=== PATIENT | female | born 1955 | race Caucasian/White ===

== ENCOUNTER 2016-12-25 21:32 | Emergency (ER) | payer OTHER ==
[~2016-12-25] VITALS: Ht 160 cm; Wt 130.0 kg
[~2016-12-25 21:32] MED LIST: NO HOME MEDS; NORCO 325 MG-101 TAB PO; NORCO 325 MG-7.1 TAB PO; ROXICODONE 55 MG/TAB PO; TYLENOL 500MG500 MG PO
[2016-12-25] MEDS ORDERED: TYLENOL 500MG500 MG PO (21:39)
[2016-12-25] MEDS ORDERED: CIPRO 500MG TA500 MG PO (21:40)
[2016-12-25 21:41] VITALS: TEMP 98.5
[2016-12-25] MEDS ORDERED: FLAGYL500 MG PO (21:41)
[2016-12-25 22:24] LABS: BASO % 0.3 % (0.0-2.0); EOS # 0.1 (0.0-0.7); EOS % 0.7 % (0-4.0); GRAN % 79.2 % (42.2-75.2); HEMOGLOBIN 15.1 g/dl (12.5-16.0); LYMPH % 11.1 % (20.0-51.0); MEAN CELL VOLUME 98 fl (80.0-100.0); MEAN CORPUSCULAR HEMOGLOBIN 34 pg (27.0-31.0); MEAN CORPUSCULAR HGB CONC 34 g/dl (33.0-37.0); MEAN PLATELET VOLUME 10.7 fl (7.4-10.4); MONO # 0.7 (0.1-0.6); MONO % 8.4 % (1.7-9.3); PLATELET COUNT 163 K/mm3 (130-400); RED BLOOD COUNT 4.49 M/mm3 (4.10-5.30); WHITE BLOOD COUNT 8.8 K/mm3 (4.8-10.8)
[2016-12-25 22:47] LABS: ADJUSTED CALCIUM 8.8 mg/dL (8.4-10.2); ALBUMIN 3.7 gm/dL (3.5-5.0); BILIRUBIN,TOTAL 1.7 mg/dL (0.0-1.0); C-REACTIVE PROTEIN 5.4 mg/dL (0.0-0.9); CALCIUM 8.6 mg/dL (8.4-10.2); CREATININE, serum 1.07 mg/dL (0.52-1.25); POTASSIUM 3.9 mmol/L (3.4-5.0); TOTAL PROTEIN 7.9 gm/dL (6.4-8.2)
[2016-12-26 00:20] LABS: PH 6 (5-8); URINE APPEARANCE Hazy; URINE BACTERIA Rare /hpf; URINE BILIRUBIN Negative (NEGATIVE); URINE BLOOD 1+ (NEGATIVE); URINE COLOR Yellow; URINE GLUCOSE Negative (NEGATIVE); URINE KETONE Negative (NEGATIVE); URINE UROBILINOGEN >=4.0 mg/dL (NEGATIVE)
[2016-12-26] MEDS ORDERED: PERCOCET 325 MG1 TA2 PO (00:32)
[2016-12-26] MEDS ORDERED: ZOFRAN ODT4 MG PO (00:32)
[2016-12-26 00:56] VITALS: BP 118/84; PULSE 96
== END 2016-12-26 00:50 | disposition home or self-care (01) ==
LOC: COL.ER 21:32
PROVIDERS: Nurse Practitioner
DX: N13.2 Hydronephrosis with renal and ureteral calculous obstruction (principal); Z87.442 Personal history of urinary calculi; J44.9 Chronic obstructive pulmonary disease, unspecified; Z99.81 Dependence on supplemental oxygen; Z87.891 Personal history of nicotine dependence
CPT/HCPCS: J1170; J2405; J7030; Q9967

== ENCOUNTER 2016-12-26 13:24 | Day surgery (SDC) | payer OTHER ==
[~2016-12-26] VITALS: Ht 152.4 cm; Wt 130.0 kg
[~2016-12-26 13:24] MED LIST changes: +CIPRO 500MG TA500 MG PO; +FLAGYL500 MG PO; +PERCOCET 325 MG1 TA2 PO; +ZOFRAN ODT4 MG PO
[2016-12-26 13:46] VITALS: BP 123/65; PULSE 84; TEMP 97.9
[2016-12-26 17:03] VITALS: TEMP 97.5
[2016-12-26 17:34] VITALS: BP 145/86; PULSE 75
== END 2016-12-26 19:24 | disposition home or self-care (01) ==
LOC: SURG 13:24 → SDCO 13:24 → SURG 13:30 → SDCO 19:24
DX: N20.1 Calculus of ureter (principal); J44.9 Chronic obstructive pulmonary disease, unspecified; G47.33 Obstructive sleep apnea (adult) (pediatric); G43.909 Migraine, unspecified, not intractable, without status migrainosus; E66.01 Morbid (severe) obesity due to excess calories; Z68.41 Body mass index [BMI] 40.0-44.9, adult; Z90.710 Acquired absence of both cervix and uterus; Z87.891 Personal history of nicotine dependence
CPT/HCPCS: OP; C1769; C1894; C2617; J1100; J1885; J2405; J2704; J3010; Q9967

== ENCOUNTER → 2017-01-07 | Outpatient (CLI) | payer OTHER | LOC: COL.RAD 08:10 | DX: N28.89 Other specified disorders of kidney and ureter (principal); Z96.0 Presence of urogenital implants ==

== ENCOUNTER 2017-01-14 14:07 | Day surgery (SDC) | payer OTHER ==
[~2017-01-14] VITALS: Ht 160 cm; Wt 131.6 kg
[2017-01-14 14:44] VITALS: BP 114/76; PULSE 91; TEMP 99.5
[2017-01-14 19:45] VITALS: BP 141/84; PULSE 116; TEMP 98.4
[2017-01-14 20:00] VITALS: BP 154/82; PULSE 98; TEMP 98.5
[2017-01-14 21:17] VITALS: BP 163/72; PULSE 100; TEMP 98.2
== END 2017-01-14 20:15 | disposition home or self-care (01) ==
LOC: SDCO 14:07 → SURG 19:45 → SDCO 20:15
DX: N20.0 Calculus of kidney (principal); J44.9 Chronic obstructive pulmonary disease, unspecified; G47.33 Obstructive sleep apnea (adult) (pediatric); M19.90 Unspecified osteoarthritis, unspecified site; G43.909 Migraine, unspecified, not intractable, without status migrainosus; E66.01 Morbid (severe) obesity due to excess calories; Z90.710 Acquired absence of both cervix and uterus; Z87.891 Personal history of nicotine dependence
CPT/HCPCS: OP; C1769; J0690; J1100; J2405; J2704; J3010; J7120

== ENCOUNTER → 2017-01-20 | Outpatient (CLI) | payer OTHER | LOC: COL.RAD 11:07 | DX: N20.1 Calculus of ureter (principal); I87.8 Other specified disorders of veins ==

== ENCOUNTER 2018-03-28 01:39 | Inpatient (IN) | payer MEDICARE, OTHER ==
[~2018-03-28] VITALS: Ht 160 cm; Wt 142.3 kg
[2018-03-28] MEDS ORDERED: TYLENOL 500MG500 MG PO (01:58)
[2018-03-28] MEDS ORDERED: NEURONTIN300 MG/CAP PO (01:59)
[2018-03-28 02:37] LABS: HEMATOCRIT 42.1 % (37.0-47.0); HEMOGLOBIN 14.3 g/dl (12.5-16.0); MEAN CELL VOLUME 98 fl (80.0-100.0); MEAN CORPUSCULAR HEMOGLOBIN 33 pg (27.0-31.0); MEAN CORPUSCULAR HGB CONC 34 g/dl (33.0-37.0); MEAN PLATELET VOLUME 10.8 fl (7.4-10.4); PLATELET COUNT 116 K/mm3 (130-400); RED BLOOD COUNT 4.28 M/mm3 (4.10-5.30); REDCELL DISTRIBUTION WIDTH-CV 13.3 % (11.5-14.5)
[2018-03-28 02:50] LABS: ALBUMIN 3.2 gm/dL (3.5-5.0); BILIRUBIN,TOTAL 2.4 mg/dL (0.0-1.0); CALCIUM 8.2 mg/dL (8.4-10.2); CREATININE, serum 1.19 mg/dL (0.52-1.25); POTASSIUM 4.1 mmol/L (3.4-5.0); TOTAL PROTEIN 7.3 gm/dL (6.4-8.2)
[2018-03-28 03:06] LABS: BAND 11 % (0-10); LYMPHOCYTE 2 % (20.0-51.0); NEUTROPHILS 84 % (42.0-75.2); PLATELET ESTIMATE NORMAL (NORMAL)
[2018-03-28 03:44] LABS: COLLECTION METHOD CLEAN CATCH
[2018-03-28 03:52] LABS: MUCOUS Present /lpf; PH 6 (5-8); SQUAMOUS EPITHELIAL 0-2 /hpf; URINE APPEARANCE Cloudy; URINE BACTERIA Rare /hpf; URINE BILIRUBIN Negative (NEGATIVE); URINE BLOOD 2+ (NEGATIVE); URINE COLOR Amber; URINE GLUCOSE Negative (NEGATIVE); URINE KETONE Negative (NEGATIVE); URINE LEUKOCYTE ESTERASE 2+ (NEGATIVE); URINE NITRATE Negative (NEGATIVE); URINE PROTEIN(semi-quant) 3+ (NEGATIVE); URINE UROBILINOGEN Negative (NEGATIVE)
[2018-03-28 06:37] VITALS: BP 100/56; PULSE 104; TEMP 98.4
[2018-03-28 08:00] VITALS: BP 116/56; PULSE 116; TEMP 99.5
[2018-03-28 11:53] VITALS: BP 99/85; PULSE 125; TEMP 100.9
[2018-03-28 15:48] VITALS: BP 92/60; PULSE 141; TEMP 102.5
[2018-03-28 16:18] LABS: CALCIUM 7.7 mg/dL (8.4-10.2); CREATININE, serum 1.17 mg/dL (0.52-1.25); POTASSIUM 4.2 mmol/L (3.4-5.0)
[2018-03-28 16:45] LABS: ARTERIAL BLD GAS O2 SATURATION 94.5 % (92-100); ARTERIAL BLD GAS TCO2 CT 24.9; ARTERIAL BLOOD GAS BASE EXCESS -0.3 (-2-2); ARTERIAL BLOOD GAS HCO3 23.7 meq/L (22-26); ARTERIAL BLOOD GAS PCO2 37.1 mmHg (35-45); ARTERIAL BLOOD GAS PO2 71.9 mmHg (80-100); ARTERIAL BLOOD GAS pH 7.42 (7.35-7.45)
[2018-03-28 19:39] LABS: INR 1.6 (0.8-3.0); PROTHROMBIN TIME 18.7 SECONDS (9.7-12.8)
[2018-03-28 20:00] VITALS: BP 113/62; PULSE 109; TEMP 100.4
[2018-03-28 22:47] LABS: CALCIUM 7.5 mg/dL (8.4-10.2); CREATININE, serum 1.17 mg/dL (0.52-1.25)
[2018-03-28 22:48] LABS: HEMATOCRIT 39.1 % (37.0-47.0); HEMOGLOBIN 13.2 g/dl (12.5-16.0); MEAN CELL VOLUME 101 fl (80.0-100.0); MEAN CORPUSCULAR HEMOGLOBIN 34 pg (27.0-31.0); MEAN CORPUSCULAR HGB CONC 34 g/dl (33.0-37.0); MEAN PLATELET VOLUME 11.5 fl (7.4-10.4); PLATELET COUNT 87 K/mm3 (130-400); RED BLOOD COUNT 3.89 M/mm3 (4.10-5.30); REDCELL DISTRIBUTION WIDTH-CV 13.7 % (11.5-14.5)
[2018-03-29] VITALS: BP 118/70; PULSE 123; TEMP 101.3
[2018-03-29 00:27] LABS: BAND 19 % (0-10); LYMPHOCYTE 6 % (20.0-51.0); NEUTROPHILS 71 % (42.0-75.2); PLATELET ESTIMATE DECREASED (NORMAL)
[2018-03-29 00:29] LABS: ANISOCYTOSIS 1+; HYPOCHROMIA 1+
[2018-03-29 04:00] VITALS: BP 111/63; PULSE 113; TEMP 99.6
[2018-03-29 05:46] LABS: ARTERIAL BLD GAS O2 SATURATION 96.9 % (92-100); ARTERIAL BLD GAS TCO2 CT 24.8; ARTERIAL BLOOD GAS HCO3 23.5 meq/L (22-26); ARTERIAL BLOOD GAS PCO2 42.8 mmHg (35-45); ARTERIAL BLOOD GAS PO2 96.5 mmHg (80-100); ARTERIAL BLOOD GAS pH 7.36 (7.35-7.45)
[2018-03-29 05:57] LABS: HEMATOCRIT 38.8 % (37.0-47.0); HEMOGLOBIN 12.8 g/dl (12.5-16.0); MEAN CELL VOLUME 102 fl (80.0-100.0); MEAN CORPUSCULAR HEMOGLOBIN 34 pg (27.0-31.0); MEAN CORPUSCULAR HGB CONC 33 g/dl (33.0-37.0); MEAN PLATELET VOLUME 11.6 fl (7.4-10.4); PLATELET COUNT 76 K/mm3 (130-400); RED BLOOD COUNT 3.82 M/mm3 (4.10-5.30); REDCELL DISTRIBUTION WIDTH-CV 13.5 % (11.5-14.5)
[2018-03-29 06:07] LABS: ALBUMIN 2.7 gm/dL (3.5-5.0); BILIRUBIN,TOTAL 1.7 mg/dL (0.0-1.0); CALCIUM 7.5 mg/dL (8.4-10.2); CREATININE, serum 1.03 mg/dL (0.52-1.25); POTASSIUM 3.8 mmol/L (3.4-5.0); TOTAL PROTEIN 6.5 gm/dL (6.4-8.2)
[2018-03-29 06:08] LABS: INR 1.6 (0.8-3.0); PROTHROMBIN TIME 18.2 SECONDS (9.7-12.8)
[2018-03-29 06:16] LABS: ANISOCYTOSIS 1+; BAND 27 % (0-10); LYMPHOCYTE 5 % (20.0-51.0); NEUTROPHILS 64 % (42.0-75.2); TROPONIN-I 0.025 ng/mL (0.000-0.034)
[2018-03-29 07:43] VITALS: BP 121/62; PULSE 114; TEMP 101.4
[2018-03-29 11:23] VITALS: BP 105/60; PULSE 104; TEMP 99.1
[2018-03-29 15:43] VITALS: BP 123/62; PULSE 98; TEMP 97.9
[2018-03-29 20:00] VITALS: BP 135/75; PULSE 107; TEMP 98.1
[2018-03-30] VITALS: BP 121/58; PULSE 98; TEMP 98.5
[2018-03-30 04:00] VITALS: BP 105/65; PULSE 85; TEMP 99.8
[2018-03-30 06:03] LABS: ARTERIAL BLD GAS O2 SATURATION 97.6 % (92-100); ARTERIAL BLD GAS TCO2 CT 25.2; ARTERIAL BLOOD GAS BASE EXCESS -2.6 (-2-2); ARTERIAL BLOOD GAS HCO3 23.7 meq/L (22-26); ARTERIAL BLOOD GAS PCO2 46.9 mmHg (35-45); ARTERIAL BLOOD GAS PO2 104.3 mmHg (80-100); ARTERIAL BLOOD GAS pH 7.32 (7.35-7.45)
[2018-03-30 06:36] LABS: BASO % 0.5 % (0.0-2.0); EOS # 0.1 (0.0-0.7); GRAN # 6.7 (1.4-6.5); GRAN % 82.9 % (42.2-75.2); HEMATOCRIT 37.5 % (37.0-47.0); HEMOGLOBIN 12.1 g/dl (12.5-16.0); LYMPH # 0.6 (1.2-3.4); LYMPH % 7.8 % (20.0-51.0); MEAN CELL VOLUME 103 fl (80.0-100.0); MEAN CORPUSCULAR HEMOGLOBIN 33 pg (27.0-31.0); MEAN CORPUSCULAR HGB CONC 32 g/dl (33.0-37.0); MEAN PLATELET VOLUME 11.1 fl (7.4-10.4); MONO # 0.6 (0.1-0.6); MONO % 7.1 % (1.7-9.3); PLATELET COUNT 73 K/mm3 (130-400); RED BLOOD COUNT 3.64 M/mm3 (4.10-5.30); REDCELL DISTRIBUTION WIDTH-CV 13.3 % (11.5-14.5)
[2018-03-30 06:43] LABS: INR 1.3 (0.8-3.0)
[2018-03-30 06:50] LABS: ALBUMIN 2.7 gm/dL (3.5-5.0); CALCIUM 7.8 mg/dL (8.4-10.2); CREATININE, serum 0.9 mg/dL (0.52-1.25); POTASSIUM 3.8 mmol/L (3.4-5.0); TOTAL PROTEIN 6.5 gm/dL (6.4-8.2)
[2018-03-30 07:38] VITALS: BP 130/73; PULSE 93; TEMP 97.8
[2018-03-30 13:42] VITALS: BP 129/75; PULSE 76; TEMP 97.7
[2018-03-30 16:28] VITALS: BP 105/58; PULSE 67; TEMP 97.9
[2018-03-30 19:08] VITALS: BP 130/72; PULSE 115; TEMP 98.3
[2018-03-31 05:00] VITALS: BP 133/78; PULSE 62; TEMP 98.6
[2018-03-31 07:42] VITALS: BP 110/70; PULSE 96; TEMP 98.3
[2018-03-31 07:44] LABS: BASO # 0.1 (0.0-0.2); BASO % 0.7 % (0.0-2.0); EOS # 0.1 (0.0-0.7); EOS % 1.9 % (0-4.0); GRAN # 5.8 (1.4-6.5); GRAN % 78.9 % (42.2-75.2); HEMATOCRIT 38.3 % (37.0-47.0); HEMOGLOBIN 12.6 g/dl (12.5-16.0); LYMPH # 0.7 (1.2-3.4); LYMPH % 8.8 % (20.0-51.0); MEAN CELL VOLUME 102 fl (80.0-100.0); MEAN CORPUSCULAR HEMOGLOBIN 34 pg (27.0-31.0); MEAN CORPUSCULAR HGB CONC 33 g/dl (33.0-37.0); MEAN PLATELET VOLUME 10.8 fl (7.4-10.4); MONO # 0.7 (0.1-0.6); MONO % 9.4 % (1.7-9.3); PLATELET COUNT 89 K/mm3 (130-400); RED BLOOD COUNT 3.76 M/mm3 (4.10-5.30); REDCELL DISTRIBUTION WIDTH-CV 13.1 % (11.5-14.5)
[2018-03-31 12:05] VITALS: BP 105/58; PULSE 84; TEMP 98.7
[2018-03-31 15:36] VITALS: BP 109/84; PULSE 99; TEMP 98.4
[2018-03-31 21:00] VITALS: BP 138/88; PULSE 97; TEMP 98.1
[2018-04-01] VITALS: BP 121/65; PULSE 82; TEMP 97.3
[2018-04-01 05:11] VITALS: BP 93/71; PULSE 97; TEMP 98.3
[2018-04-01 07:45] VITALS: BP 115/75; PULSE 77; TEMP 97.9
[2018-04-01 11:40] VITALS: BP 112/62; PULSE 96; TEMP 98.1
[2018-04-01 15:22] VITALS: BP 122/51; PULSE 82; TEMP 98.8
[2018-04-01 23:10] VITALS: BP 133/65; PULSE 93; TEMP 97.9
[2018-04-02 01:24] VITALS: BP 107/47; PULSE 84; TEMP 97.6
[2018-04-02 05:02] VITALS: BP 143/72; PULSE 91; TEMP 97.5
[2018-04-02 07:48] VITALS: BP 105/53; PULSE 77; TEMP 97.7
[2018-04-02] MEDS ORDERED: LEVAQUIN 750MG750 M1 PO (13:43)
[2018-04-02] MEDS ORDERED: LEVAQUIN 5500 MG/TA1 PO (14:52)
[2018-04-02 15:48] VITALS: BP 110/71; PULSE 97; TEMP 97.1
== END 2018-04-02 17:35 | disposition home health service (06) | DRG 871 ==
LOC: COL.ER 01:39 → ICU 04:19 → MEDICAL 04:19
PROVIDERS: Emergency Medicine; Internal Medicine Pulmonary Disease
PROC: 02HV33Z Insertion of Infusion Device into Superior Vena Cava, Percutaneous Approach (ICD-10-PCS; principal; 2018-03-28)
DX: A41.51 Sepsis due to Escherichia coli [E. coli] (principal); J96.01 Acute respiratory failure with hypoxia; N10 Acute pyelonephritis; Z68.43 Body mass index [BMI] 50.0-59.9, adult; E87.2 Acidosis; R65.20 Severe sepsis without septic shock; N20.0 Calculus of kidney; G62.9 Polyneuropathy, unspecified; Z87.891 Personal history of nicotine dependence; I10 Essential (primary) hypertension; E66.9 Obesity, unspecified
CPT/HCPCS: J0696; J1644; J1956; J2405; J2543; J7030; J7120; Q9967

== ENCOUNTER → 2018-04-29 | Outpatient (CLI) | payer MEDICARE, OTHER ==
[~2018-04-29] MED LIST changes: +LEVAQUIN 5500 MG/TA1 PO; +LEVAQUIN 750MG750 M1 PO; +NEURONTIN300 MG/CAP PO
== END ==
LOC: MC.RAD 07:34
DX: Z12.31 Encounter for screening mammogram for malignant neoplasm of breast (principal)

== ENCOUNTER 2019-06-03 23:33 | Emergency (ER) | payer MEDICARE, OTHER ==
[~2019-06-03] VITALS: Ht 157.5 cm; Wt 127.3 kg
[2019-06-03 23:44] VITALS: BP 133/66
[2019-06-04 00:16] LABS: BASO % 0.5 % (0.0-2.0); EOS # 0.1 (0.0-0.7); EOS % 1.6 % (0-4.0); GRAN # 6.8 (1.4-6.5); GRAN % 77.8 % (42.2-75.2); HEMATOCRIT 40.3 % (37.0-47.0); HEMOGLOBIN 13.6 g/dl (12.5-16.0); LYMPH # 1.2 (1.2-3.4); LYMPH % 13.1 % (20.0-51.0); MEAN CELL VOLUME 102 fl (80.0-100.0); MEAN CORPUSCULAR HEMOGLOBIN 34 pg (27.0-31.0); MEAN CORPUSCULAR HGB CONC 34 g/dl (33.0-37.0); MEAN PLATELET VOLUME 10.6 fl (7.4-10.4); MONO # 0.6 (0.1-0.6); MONO % 6.8 % (1.7-9.3); PLATELET COUNT 100 K/mm3 (130-400); RED BLOOD COUNT 3.97 M/mm3 (4.10-5.30); REDCELL DISTRIBUTION WIDTH-CV 13.7 % (11.5-14.5)
[2019-06-04 00:21] LABS: INR 1.1 (0.8-3.0); PROTHROMBIN TIME 12.8 SECONDS (9.7-12.8)
[2019-06-04 00:25] LABS: ALANINE AMINOTRANSFERASE 27 U/L (9-52); ALBUMIN 3.6 gm/dL (3.5-5.0); ALKALINE PHOSPHATASE 210 U/L (50-136); ANION GAP 7 mmol/L (7-16); AST,SGOT 63 U/L (15-37); BILIRUBIN,TOTAL 1.2 mg/dL (0.0-1.0); BLOOD UREA NITROGEN 18 mg/dL (7-17); CARBON DIOXIDE 26 mmol/L (22-30); CHLORIDE 101 mmol/L (98-107); GLUCOSE 121 mg/dL (74-106); POTASSIUM 4.2 mmol/L (3.4-5.0); SODIUM 134 mmol/L (137-145); TOTAL PROTEIN 8.3 gm/dL (6.4-8.2)
[2019-06-04 00:36] LABS: TROPONIN-I < 0.012 ng/mL (0.000-0.035)
[2019-06-04 01:31] VITALS: TEMP 98.2
[2019-06-04 02:24] LABS: COLLECTION METHOD CATHETER
[2019-06-04 02:50] LABS: MUCOUS Present /lpf; PH 6 (5-8); URINE APPEARANCE Turbid; URINE BACTERIA Occasional /hpf; URINE BILIRUBIN Negative (NEGATIVE); URINE BLOOD 2+ (NEGATIVE); URINE COLOR Amber; URINE GLUCOSE Negative (NEGATIVE); URINE KETONE Negative (NEGATIVE); URINE LEUKOCYTE ESTERASE 3+ (NEGATIVE); URINE NITRATE Positive (NEGATIVE); URINE PROTEIN(semi-quant) 1+ (NEGATIVE); URINE RBC >50 /hpf; URINE UROBILINOGEN Negative (NEGATIVE)
[2019-06-04] MEDS ORDERED: LEVAQUIN 750MG750 M1 PO (03:39)
[2019-06-04 05:11] VITALS: PULSE 94
== END 2019-06-04 04:47 | disposition home or self-care (01) ==
LOC: COL.ER 23:33
PROVIDERS: Emergency Medicine
DX: N39.0 Urinary tract infection, site not specified (principal); I10 Essential (primary) hypertension; N20.0 Calculus of kidney
CPT/HCPCS: J1956; J7030

== ENCOUNTER → 2019-07-04 | Outpatient (CLI) | payer MEDICARE, OTHER ==
[2019-07-04 12:21] LABS: HEMATOCRIT 39.9 % (37.0-47.0); HEMOGLOBIN 13.2 g/dl (12.5-16.0); MEAN CELL VOLUME 105 fl (80.0-100.0); MEAN CORPUSCULAR HEMOGLOBIN 35 pg (27.0-31.0); MEAN CORPUSCULAR HGB CONC 33 g/dl (33.0-37.0); MEAN PLATELET VOLUME 10.7 fl (7.4-10.4); PLATELET COUNT 91 K/mm3 (130-400); RED BLOOD COUNT 3.81 M/mm3 (4.10-5.30); REDCELL DISTRIBUTION WIDTH-CV 13.7 % (11.5-14.5)
[2019-07-04 12:36] LABS: CALCIUM 9.1 mg/dL (8.4-10.2); CREATININE, serum 0.85 (0.52-1.25); POTASSIUM 3.7 mmol/L (3.4-5.0)
== END ==
LOC: COL.LAB 11:43
PROVIDERS: Internal Medicine Interventional Cardiology
DX: R06.02 Shortness of breath (principal)

== ENCOUNTER 2019-09-12 20:08 | Inpatient (IN) | payer MEDICARE, OTHER ==
[~2019-09-12] VITALS: Ht 157.5 cm; Wt 130.3 kg
[2019-09-12 21:04] LABS: BASO % 0.3 % (0.0-2.0); EOS % 0.3 % (0-4.0); GRAN # 5.2 (1.4-6.5); HEMATOCRIT 41.5 % (37.0-47.0); HEMOGLOBIN 14.2 g/dl (12.5-16.0); LYMPH # 0.3 (1.2-3.4); LYMPH % 5.7 % (20.0-51.0); MEAN CELL VOLUME 100 fl (80.0-100.0); MEAN CORPUSCULAR HEMOGLOBIN 34 pg (27.0-31.0); MEAN CORPUSCULAR HGB CONC 34 g/dl (33.0-37.0); MEAN PLATELET VOLUME 10.8 fl (7.4-10.4); MONO # 0.3 (0.1-0.6); MONO % 5.2 % (1.7-9.3); PLATELET COUNT 86 K/mm3 (130-400); RED BLOOD COUNT 4.16 M/mm3 (4.10-5.30); REDCELL DISTRIBUTION WIDTH-CV 12.6 % (11.5-14.5)
[2019-09-12 21:16] LABS: ALANINE AMINOTRANSFERASE 34 U/L (9-52); ALBUMIN 3.8 gm/dL (3.5-5.0); ALKALINE PHOSPHATASE 149 U/L (50-136); ANION GAP 7 mmol/L (7-16); AST,SGOT 71 U/L (15-37); BILIRUBIN,TOTAL 1.9 mg/dL (0.0-1.0); BLOOD UREA NITROGEN 13 mg/dL (7-17); C-REACTIVE PROTEIN 1.2 mg/dL (0.0-0.9); CALCIUM 8.8 mg/dL (8.4-10.2); CARBON DIOXIDE 24 mmol/L (22-30); CHLORIDE 105 mmol/L (98-107); CREATININE, serum 0.62 (0.52-1.25); GLUCOSE 129 mg/dL (74-106); POTASSIUM 4.2 mmol/L (3.4-5.0); SODIUM 135 mmol/L (137-145); TOTAL PROTEIN 8.4 gm/dL (6.4-8.2)
[2019-09-12 21:24] LABS: COLLECTION METHOD CATHETER
[2019-09-12 21:27] LABS: TROPONIN-I < 0.012 ng/mL (0.000-0.035)
[2019-09-12 21:31] LABS: MUCOUS Present /lpf; PH 8 (5-8); SQUAMOUS EPITHELIAL 0-2 /hpf; URINE APPEARANCE Cloudy; URINE BACTERIA Rare /hpf; URINE BILIRUBIN Negative (NEGATIVE); URINE BLOOD Negative (NEGATIVE); URINE COLOR Yellow; URINE GLUCOSE Negative (NEGATIVE); URINE KETONE Trace (NEGATIVE); URINE LEUKOCYTE ESTERASE 2+ (NEGATIVE); URINE NITRATE Positive (NEGATIVE); URINE PROTEIN(semi-quant) Negative (NEGATIVE); URINE UROBILINOGEN Negative (NEGATIVE)
[2019-09-13] VITALS (195 sets, daily range): BP systolic 90–114; BP diastolic 55–86; PULSE 92–115; TEMP 98.6–100.2; O2SAT 81–98
--- NOTE | 2019-09-13 02:22 | NUR ---
Arrived to the unit via stretcher. Able to transfer with 2 assist to ICU bed. Patient alert and partially oriented. Able to follow basic commands and answers most basic quesions appropriately. Patient moans frequently and is hyperalert to stimuli. Will continue to monitor.
--- NOTE | 2019-09-13 05:00 | NUR ---
Patient heard moaning loudly from room, attempting to get up from bed. Patient stated she "needs to go pee". Assisted up with two assist to toilet. Patient transfered well but gait is hesitant, and is sometimes slow to follow commands. Reports feeling "better" after voiding.
[2019-09-13 05:45] LABS: HEMATOCRIT 38.1 % (37.0-47.0); HEMOGLOBIN 13.1 g/dl (12.5-16.0); MEAN CELL VOLUME 101 fl (80.0-100.0); MEAN CORPUSCULAR HEMOGLOBIN 35 pg (27.0-31.0); MEAN CORPUSCULAR HGB CONC 34 g/dl (33.0-37.0); PLATELET COUNT 74 K/mm3 (130-400); RED BLOOD COUNT 3.78 M/mm3 (4.10-5.30); REDCELL DISTRIBUTION WIDTH-CV 12.7 % (11.5-14.5)
[2019-09-13 05:52] LABS: CALCIUM 7.9 mg/dL (8.4-10.2); CREATININE, serum 0.63 (0.52-1.25); MAGNESIUM 1.7 mg/dL (1.6-2.3); POTASSIUM 3.9 mmol/L (3.4-5.0)
--- NOTE | 2019-09-13 06:45 | NUR ---
Patient still moaning and restless in bed; reports having a headache. Patient has no PRN pain medication. Two attempts made to contact Dr. Cox without a response. Will notify dayshift nurse.
--- NOTE | 2019-09-13 07:20 | NUR ---
Bedside report recieved from CATARINO Shea. Patient sleeping at this time. MIVF running to uncomplicated peripheral line to RAC. Patient does not wake at this time. Care assumed.
--- NOTE | 2019-09-13 08:30 | NUR ---
Dr. Cox contacted secondary to patient's low grade temp of 99.9 and report of headache and bodyaches. See PRN order as entered CPOE.
--- NOTE | 2019-09-13 09:44 | NUR ---
Dr. Cox rounds at this time. Orders as entered CPOE.
[2019-09-13 09:46] LABS: GRAN % 83.1 % (42.2-75.2)
[2019-09-13 09:47] LABS: BASO % 0.4 % (0.0-2.0); EOS % 0.2 % (0-4.0); LYMPH # 0.3 (1.2-3.4); MONO # 0.5 (0.1-0.6); MONO % 10.1 % (1.7-9.3)
--- NOTE | 2019-09-13 12:10 | NUR ---
Report called to CATARINO Pedraza.
--- NOTE | 2019-09-13 12:42 | NUR ---
Patient transported to medical room 314 via WC. All belongings and chart sent with. Patient assisted to bedside recliner and provided call light. CATARINO Pedraza present. Care transferred.
--- NOTE | 2019-09-13 14:21 | NUR ---
GROUND DEFENCE OFFICER student attempted to meet with the patient. The patient was very sleepy and did not want to talk at this time. The patient was tranferred to medical floor. GROUND DEFENCE OFFICER student informed medical floor SW.
--- NOTE | 2019-09-13 16:05 | NUR ---
LING met with the patient to complete initial intake. The patient lives in [place] with her , son, and grandson. The patient use 3L of oxygen as needed, Dr. Snowden is the patient's wreath machine tender. The patient has a CPAP and recently began using it again and receives supplies from [facility]. The patient's PCP is Dr. Solano and patient receives medications from [facility] with no difficulties. The patient does not have advanced directives in the EMR but was interested in DPOA-HC form. Form provided. director emergency services will continue to follow to ensure a safe discharge.
--- NOTE | 2019-09-13 16:36 | NUR ---
Patient would like to complete DPOA-HC form. LING assisted patient in completing form which designated her Guanakito and her son Edmar. LING and LING Nguyen provided witness signature. LING provided original and copies to patient then placed a copy on patient chart.
--- NOTE | 2019-09-13 19:30 | NUR ---
Patient up independently in room during change of shift report from day shift nurse. Patient reported no needs at time of report
[2019-09-14 00:20] VITALS: BP 91/69; PULSE 103; TEMP 98.6
--- NOTE | 2019-09-14 01:28 | NUR ---
Patient sitting up in chair with eyes closed, breathing nonlabored and even. Does not awaken when door to room opened.
[2019-09-14 03:16] VITALS: BP 100/57; PULSE 107; TEMP 99.2
--- NOTE | 2019-09-14 05:44 | NUR ---
PATIENT UP IN CHAIR, STATED AFTER MOST RECENT PAIN MED GIVEN FOR C/O HEADACHE, REPORTS PAIN LEVEL IS DOWN, "BETTER". NO OTHER NEEDS REPORTED.
--- NOTE | 2019-09-14 07:00 | NUR ---
Bedside shift report received from CATARINO Castañeda. PT in chair at side of bed requesting PRN pain meds, will continue to monitor.
--- NOTE | 2019-09-14 07:10 | NUR ---
Patient sleeping while up in chair, Ox off, placed back on patient. Patient awaken with name called. Change of shift report given to day shift nurse & orientee.
[2019-09-14 07:21] LABS: BASO % 0.7 % (0.0-2.0); EOS % 1.1 % (0-4.0); GRAN # 1.7 (1.4-6.5); GRAN % 59.2 % (42.2-75.2); HEMATOCRIT 39.6 % (37.0-47.0); HEMOGLOBIN 12.8 g/dl (12.5-16.0); LYMPH # 0.7 (1.2-3.4); LYMPH % 23.6 % (20.0-51.0); MEAN CELL VOLUME 105 fl (80.0-100.0); MEAN CORPUSCULAR HEMOGLOBIN 34 pg (27.0-31.0); MEAN CORPUSCULAR HGB CONC 32 g/dl (33.0-37.0); MONO # 0.4 (0.1-0.6); MONO % 15.4 % (1.7-9.3); PLATELET COUNT 63 K/mm3 (130-400); RED BLOOD COUNT 3.79 M/mm3 (4.10-5.30); REDCELL DISTRIBUTION WIDTH-CV 12.9 % (11.5-14.5)
[2019-09-14 07:28] VITALS: BP 105/47; PULSE 95; TEMP 98.6
[2019-09-14 07:36] LABS: CALCIUM 7.9 mg/dL (8.4-10.2); CREATININE, serum 0.77 (0.52-1.25)
--- NOTE | 2019-09-14 08:51 | NUR ---
Assessment charted. PT resting in chair, PRN pain meds given per request for headache pain at 8/10. Pt wearing 02 at 2L when needed, per pt this is her home requirement as well. Anticipating breakfast. Denies needs, will continue to monitor.
--- NOTE | 2019-09-14 15:51 | NUR ---
Pt resting in bed, continues to have headache, imitrex given per orders along with caffeine. Pt resting in bed. Denies other needs. Has not been up amublating often today. Will give bedside shift report to nighthshift nurse who will resume care.
[2019-09-14 16:37] VITALS: BP 119/50; PULSE 66; TEMP 99.1
--- NOTE | 2019-09-14 16:39 | NUR ---
LING met with the patient to review discharge plan and to discuss PT's recommendation of home if able and OT's recommendation of home health vs SNF. The patient reports that she prefers to return home with her family. She states that she would rather do outpatient PT/OT at [facility] instead of home health. LING contacted [facility]. [facility] only does PT. LING to inform the patient and will continue to follow.
--- NOTE | 2019-09-14 18:30 | NUR ---
PT report received from Juliet RN at bedside. PT sitting in recliner watching TV. PT denies pain or wants/needs at this time. No s/s of distress noted. Will continue to monitor.
--- NOTE | 2019-09-14 20:15 | NUR ---
PT is resting in recliner watching tv with no complaints, wants, or needs at this time. PT easily transfers to her feet and back into the recliner. PT is noted to have some pain as this typewriter aligner performed edema assessment to her BLE. PT takes Lovenox SQ for VTE. PT is able to make wants/needs known, is A&Ox4, and has call light within reach and is noted to have a 1/4 filled cup of ice on her bedside table within reach and her home CPAP machine on the ledge next to her. PT states when she is ready to sleep she will put her CPAP on herself. No s/s of distress noted. Will continue to monitor
[2019-09-14 20:16] VITALS: BP 111/48; PULSE 90; TEMP 98.5
[2019-09-15 00:13] VITALS: BP 106/52; PULSE 86; TEMP 97.5
--- NOTE | 2019-09-15 01:41 | NUR ---
PT is noted to be sleeping peacefully in the recliner with no s/s of distress noted. Will continue to monitor.
--- NOTE | 2019-09-15 02:16 | NUR ---
PT has stated that she prefers to sleep in the recliner and will let this comic book writer know if she decides to get into bed. PT is sleeping peacefully at this time in the recliner with her CPAP on and no s/s of distress.
--- NOTE | 2019-09-15 04:13 | NUR ---
PT resting in recliner with eyes closed and CPAP on with no s/s of distress noted. Will continue to monitor.
[2019-09-15 04:31] VITALS: BP 108/51; PULSE 84; TEMP 97.6
--- NOTE | 2019-09-15 06:10 | NUR ---
PT sitting in recliner watching tv with no s/s of distress noted. PT reports that she continues to have pain "around 7" out of 10. Will continue to monitor.
[2019-09-15 07:53] VITALS: BP 119/52; PULSE 80; TEMP 98.1
[2019-09-15 09:20] LABS: BASO % 0.5 % (0.0-2.0); EOS # 0.1 (0.0-0.7); EOS % 3.6 % (0-4.0); GRAN # 0.9 (1.4-6.5); GRAN % 45.4 % (42.2-75.2); HEMATOCRIT 38.8 % (37.0-47.0); HEMOGLOBIN 12.8 g/dl (12.5-16.0); LYMPH # 0.8 (1.2-3.4); LYMPH % 41.3 % (20.0-51.0); MEAN CELL VOLUME 104 fl (80.0-100.0); MEAN CORPUSCULAR HEMOGLOBIN 34 pg (27.0-31.0); MEAN CORPUSCULAR HGB CONC 33 g/dl (33.0-37.0); MEAN PLATELET VOLUME 11.2 fl (7.4-10.4); MONO # 0.2 (0.1-0.6); MONO % 9.2 % (1.7-9.3); PLATELET COUNT 68 K/mm3 (130-400); RED BLOOD COUNT 3.75 M/mm3 (4.10-5.30); REDCELL DISTRIBUTION WIDTH-CV 12.9 % (11.5-14.5)
[2019-09-15] MEDS ORDERED: OMNICEF 300MG300 MG PO (09:25)
[2019-09-15] MEDS ORDERED: TAMIFLU 75MG75 MG PO (09:25)
[2019-09-15] MEDS ORDERED: AMITRIPTYLINE H75 M1 PO (09:32)
--- NOTE | 2019-09-15 10:17 | NUR ---
LING met with the patient to update about [facility] and discussed the other outpatient therapy clinics. The patient chose [facility] on . LING contacted Marleen at the [facility] on and secured the patient and outpatient OT appointment on 09/21 at 1445 and PT appointment on 09/23 at 1100. LING notified the community support specialist of the appointments and faxed [facility] on the patient's discharge orders. The patient is to discharge back home with her today, 09/15, with outpatient PT/OT at [facility] on . LING presented and explained the IM form to the patient. The patient verbalized understanding, signed, and she was provided a copy. No additional needs at this time.
--- NOTE | 2019-09-15 10:50 | NUR ---
Pain reassessment at 1045 after patient was seen by physical therapy. Patient states pain was a 7/10 to the right hip after given oxycodone. Patient states pain is elevated to a 9/10. Currently resting in bed with call light within reach.
--- NOTE | 2019-09-15 11:05 | NUR ---
Ice pack applied to patient's right hip for 9/10 pain. Patient denies having any further needs and is resting in bed. Will continue to monitor. Call light within reach, bed at lowest position.
--- NOTE | 2019-09-15 11:30 | NUR ---
Discharge ordes discussed with patient, instructed to follow up with PCP as we have scheduled, discussed new prescriptions and printed Education provided/ Scripts sent to [facility] pharmacy for her, PT/OT order and scheduled for her at [facility], IV and tele removed, waiting for her to pick her up, I will escort her out when her rided arrives
== END 2019-09-15 11:37 | disposition home or self-care (01) | DRG 872 ==
LOC: COL.ER 20:08 → ICU 22:06 → MEDICAL 09-13 12:47
PROVIDERS: Emergency Medicine; Hospitalist; Physician Assistant; ADMIT Internal Medicine
DX: A41.51 Sepsis due to Escherichia coli [E. coli] (principal); N39.0 Urinary tract infection, site not specified; R53.81 Other malaise; G43.909 Migraine, unspecified, not intractable, without status migrainosus; J10.1 Influenza due to other identified influenza virus with other respiratory manifestations; Z90.710 Acquired absence of both cervix and uterus; Z87.891 Personal history of nicotine dependence
CPT/HCPCS: 99223-AI; 99231-AI; 99232-AI; 99239; A4216; J0696; J1650; J2405; J7030

== ENCOUNTER → 2019-09-21 | Outpatient (CLI) | payer MEDICARE, OTHER ==
[~2019-09-21] VITALS: Ht 158.8 cm; Wt 124.3 kg
[~2019-09-21] MED LIST changes: +AMITRIPTYLINE H75 M1 PO; +ANECREAM TOP; +NORFLEX 10100 MG/TAB PO; +OMNICEF 300MG300 MG PO; +OXYGEN MC; +TAMIFLU 75MG75 MG PO; +VOLTAREN 50MG T50 MG PO; +inhaler
[2019-09-21 09:15] VITALS: BP 132/70; PULSE 84
== END ==
LOC: LIGHT 08:56
DX: Z68.42 Body mass index [BMI] 45.0-49.9, adult (principal); R73.01 Impaired fasting glucose; G47.30 Sleep apnea, unspecified; M54.5 Low back pain
CPT/HCPCS: G0463

== ENCOUNTER → 2019-10-04 | Outpatient (CLI) | payer MEDICARE, OTHER ==
[~2019-10-04] VITALS: Ht 158.8 cm; Wt 128.6 kg
[2019-10-04 16:50] VITALS: BP 120/55; PULSE 88
== END ==
LOC: LIGHT 16:41
DX: Z68.43 Body mass index [BMI] 50.0-59.9, adult (principal); R73.01 Impaired fasting glucose; M54.5 Low back pain
CPT/HCPCS: G0463

== ENCOUNTER 2019-10-10 09:30 | Outpatient (RCR) | payer MEDICARE, OTHER | END 2019-12-22 | disposition still patient (30) | LOC: MKS.ESL.PT | DX: J11.1 Influenza due to unidentified influenza virus with other respiratory manifestations (principal); N39.0 Urinary tract infection, site not specified ==

== ENCOUNTER 2020-04-18 16:56 | Emergency (ER) | payer MEDICARE, OTHER ==
[~2020-04-18] VITALS: Ht 160 cm; Wt 127.3 kg
[~2020-04-18 16:56] MED LIST changes: +DECADRON6 MG PO; +PRINCIPEN500 MG PO; +PROTONIX 40MG T40 MG PO
[2020-04-18 17:17] VITALS: TEMP 98.5
[2020-04-18 18:08] LABS: COLLECTION METHOD CLEAN CATCH
[2020-04-18 18:29] LABS: BASO % 0.7 % (0.0-2.0); EOS # 0.2 (0.0-0.7); EOS % 3.8 % (0-4.0); GRAN # 2.6 (1.4-6.5); GRAN % 61.6 % (42.2-75.2); HEMATOCRIT 39.1 % (37.0-47.0); LYMPH % 23.7 % (20.0-51.0); MEAN CELL VOLUME 100 fl (80.0-100.0); MEAN CORPUSCULAR HEMOGLOBIN 33 pg (27.0-31.0); MEAN CORPUSCULAR HGB CONC 33 g/dl (33.0-37.0); MEAN PLATELET VOLUME 11.1 fl (7.4-10.4); MONO # 0.4 (0.1-0.6); PLATELET COUNT 94 K/mm3 (130-400); RED BLOOD COUNT 3.92 M/mm3 (4.10-5.30)
[2020-04-18 18:35] LABS: INR 1.1 (0.8-3.0); PROTHROMBIN TIME 12.6 SECONDS (9.7-12.8)
[2020-04-18 18:38] LABS: ALBUMIN 3.3 gm/dL (3.5-5.0); BILIRUBIN,TOTAL 1.1 mg/dL (0.0-1.0); CALCIUM 8.5 mg/dL (8.4-10.2); CREATININE, serum 0.66 (0.52-1.25); PARTIAL THROMBOPLASTIN TIME 34.7 SECONDS (26.0-37.0); POTASSIUM 3.2 mmol/L (3.4-5.0); TOTAL PROTEIN 7.3 gm/dL (6.4-8.2)
[2020-04-18 19:26] LABS: SQUAMOUS EPITHELIAL None Seen /hpf; URINE BACTERIA None Seen /hpf; URINE RBC >50 /hpf
[2020-04-18 19:32] LABS: URINE APPEARANCE Turbid; URINE COLOR Red
[2020-04-18 19:52] LABS: PH 7 (5-8); URINE BILIRUBIN Negative (NEGATIVE); URINE BLOOD 2+ (NEGATIVE); URINE GLUCOSE Negative (NEGATIVE); URINE KETONE Negative (NEGATIVE); URINE LEUKOCYTE ESTERASE Negative (NEGATIVE); URINE NITRATE Negative (NEGATIVE); URINE PROTEIN(semi-quant) 2+ (NEGATIVE); URINE UROBILINOGEN Negative (NEGATIVE)
[2020-04-18 22:39] VITALS: BP 118/59; PULSE 98
== END 2020-04-18 22:42 | disposition home or self-care (01) ==
LOC: COL.ER 16:56
PROVIDERS: Emergency Medicine
DX: R31.9 Hematuria, unspecified (principal); R10.9 Unspecified abdominal pain; Z90.710 Acquired absence of both cervix and uterus; Z91.048 Other nonmedicinal substance allergy status
CPT/HCPCS: J0696; Q9967

== ENCOUNTER → 2020-05-01 | Outpatient (CLI) | payer MEDICARE, OTHER ==
[~2020-05-01] VITALS: Ht 158.8 cm; Wt 132.0 kg
[2020-05-01 15:39] VITALS: BP 136/64; PULSE 80
== END ==
LOC: LIGHT
DX: E66.01 Morbid (severe) obesity due to excess calories (principal); Z68.43 Body mass index [BMI] 50.0-59.9, adult; R73.01 Impaired fasting glucose; M54.5 Low back pain
CPT/HCPCS: G0463

== ENCOUNTER → 2020-06-05 | Outpatient (CLI) | payer MEDICARE, OTHER ==
[~2020-06-05] VITALS: Ht 158.8 cm; Wt 127.7 kg
[2020-06-05 14:47] VITALS: BP 134/70; PULSE 68
== END ==
LOC: LIGHT 10:23
DX: E66.01 Morbid (severe) obesity due to excess calories (principal); Z68.43 Body mass index [BMI] 50.0-59.9, adult; R73.01 Impaired fasting glucose; M54.5 Low back pain; G47.30 Sleep apnea, unspecified
CPT/HCPCS: G0463

== ENCOUNTER 2020-06-19 12:40 | Emergency (ER) | payer MEDICARE, OTHER ==
[~2020-06-19] VITALS: Ht 157.5 cm; Wt 127.3 kg
[2020-06-19 12:59] VITALS: TEMP 97.8
[2020-06-19 13:39] LABS: COLLECTION METHOD CATHETER
[2020-06-19 13:51] LABS: BASO % 0.9 % (0.0-2.0); EOS # 0.1 (0.0-0.7); EOS % 3.5 % (0-4.0); GRAN # 2.5 (1.4-6.5); HEMOGLOBIN 11.6 g/dl (12.5-16.0); LYMPH # 0.6 (1.2-3.4); LYMPH % 15.9 % (20.0-51.0); MEAN CELL VOLUME 97 fl (80.0-100.0); MEAN CORPUSCULAR HEMOGLOBIN 33 pg (27.0-31.0); MEAN CORPUSCULAR HGB CONC 34 g/dl (33.0-37.0); MEAN PLATELET VOLUME 11.1 fl (7.4-10.4); MONO # 0.3 (0.1-0.6); MONO % 8.7 % (1.7-9.3); PLATELET COUNT 85 K/mm3 (130-400); RED BLOOD COUNT 3.57 M/mm3 (4.10-5.30)
[2020-06-19 13:57] LABS: ALBUMIN 3.3 gm/dL (3.5-5.0); C-REACTIVE PROTEIN 2.5 mg/dL (0.0-0.9); CALCIUM 8.5 mg/dL (8.4-10.2); CREATININE, serum 1.03 (0.52-1.25)
[2020-06-19] MEDS ORDERED: MACROBID 1100 MG/CAP (14:13)
[2020-06-19] MEDS ORDERED: BACTRIM DS 8001 TAB (14:14)
[2020-06-19 14:20] LABS: HEMATOCRIT 34.6 % (37.0-47.0)
[2020-06-19 14:25] LABS: PH 6 (5-8); SQUAMOUS EPITHELIAL None Seen /hpf; URINE APPEARANCE Cloudy; URINE BACTERIA None Seen /hpf; URINE BILIRUBIN Negative (NEGATIVE); URINE BLOOD 3+ (NEGATIVE); URINE COLOR Red; URINE GLUCOSE Negative (NEGATIVE); URINE KETONE Negative (NEGATIVE); URINE LEUKOCYTE ESTERASE 1+ (NEGATIVE); URINE NITRATE Negative (NEGATIVE); URINE PROTEIN(semi-quant) 2+ (NEGATIVE); URINE RBC >50 /hpf; URINE UROBILINOGEN Negative (NEGATIVE)
[2020-06-19] MEDS ORDERED: NORCO 325 MG-51 TAB PO (16:31)
[2020-06-19 16:56] VITALS: BP 117/79; PULSE 89
== END 2020-06-19 18:32 | disposition home or self-care (01) ==
LOC: COL.ER 12:40
PROVIDERS: Physician Assistant
DX: R31.0 Gross hematuria (principal); K74.60 Unspecified cirrhosis of liver; K76.6 Portal hypertension; G62.9 Polyneuropathy, unspecified; Z90.710 Acquired absence of both cervix and uterus; Z91.048 Other nonmedicinal substance allergy status; Z87.891 Personal history of nicotine dependence; Z91.09 Other allergy status, other than to drugs and biological substances
CPT/HCPCS: J2270; J2405; J7030; Q9967

== ENCOUNTER 2020-06-22 21:03 | Inpatient (IN) | payer MEDICARE, OTHER ==
[~2020-06-22] VITALS: Ht 157.5 cm; Wt 123.4 kg
[~2020-06-22 21:03] MED LIST changes: +BACTRIM DS 8001 TAB; +MACROBID 1100 MG/CAP; +NORCO 325 MG-51 TAB PO
[2020-06-22 21:56] LABS: BASO % 0.5 % (0.0-2.0); EOS # 0.1 (0.0-0.7); EOS % 1.8 % (0-4.0); GRAN % 72.1 % (42.2-75.2); HEMOGLOBIN 11.2 g/dl (12.5-16.0); LYMPH % 18.2 % (20.0-51.0); MEAN CELL VOLUME 99 fl (80.0-100.0); MEAN CORPUSCULAR HEMOGLOBIN 33 pg (27.0-31.0); MEAN CORPUSCULAR HGB CONC 33 g/dl (33.0-37.0); MEAN PLATELET VOLUME 10.9 fl (7.4-10.4); MONO # 0.4 (0.1-0.6); MONO % 7.2 % (1.7-9.3); PLATELET COUNT 119 K/mm3 (130-400); RED BLOOD COUNT 3.45 M/mm3 (4.10-5.30); REDCELL DISTRIBUTION WIDTH-CV 14.2 % (11.5-14.5)
[2020-06-22 21:58] LABS: ARTERIAL BLD GAS O2 SATURATION 96.8 % (92-100); ARTERIAL BLD GAS TCO2 CT 22.2; ARTERIAL BLOOD GAS BASE EXCESS -2.7 (-2-2); ARTERIAL BLOOD GAS HCO3 21.1 meq/L (22-26); ARTERIAL BLOOD GAS PCO2 33.4 mmHg (35-45); ARTERIAL BLOOD GAS pH 7.42 (7.35-7.45)
[2020-06-22 21:59] LABS: INR 1.2 (0.8-3.0); PROTHROMBIN TIME 13.1 SECONDS (9.7-12.8)
[2020-06-22 22:03] LABS: ALANINE AMINOTRANSFERASE 32 U/L (4-34); ALBUMIN 3.6 gm/dL (3.5-5.0); ALKALINE PHOSPHATASE 131 U/L (50-136); ANION GAP 8 mmol/L (7-16); AST,SGOT 68 U/L (15-37); BLOOD UREA NITROGEN 23 mg/dL (7-17); CALCIUM 8.6 mg/dL (8.4-10.2); CARBON DIOXIDE 25 mmol/L (22-30); CHLORIDE 104 mmol/L (98-107); CREATININE, serum 1.22 (0.52-1.25); GLUCOSE 105 mg/dL (74-106); LIPASE 171 U/L (23-300); POTASSIUM 4.4 mmol/L (3.4-5.0); SODIUM 137 mmol/L (137-145); TOTAL PROTEIN 7.2 gm/dL (6.4-8.2)
[2020-06-22 22:04] LABS: HEMATOCRIT 34.2 % (37.0-47.0)
[2020-06-22 22:16] LABS: TROPONIN-I < 0.012 ng/mL (0.000-0.035)
[2020-06-22 22:19] LABS: COLLECTION METHOD CATHETER
[2020-06-22 23:32] LABS: PH 7 (5-8); SQUAMOUS EPITHELIAL None Seen /hpf; URINE APPEARANCE Turbid; URINE BACTERIA None Seen /hpf; URINE BILIRUBIN Negative (NEGATIVE); URINE BLOOD 3+ (NEGATIVE); URINE COLOR Red; URINE GLUCOSE 1+ (NEGATIVE); URINE KETONE 1+ (NEGATIVE); URINE LEUKOCYTE ESTERASE Negative (NEGATIVE); URINE NITRATE Negative (NEGATIVE); URINE PROTEIN(semi-quant) 2+ (NEGATIVE); URINE RBC >50 /hpf; URINE UROBILINOGEN Negative (NEGATIVE)
[2020-06-23] VITALS (153 sets, daily range): BP systolic 108–135; BP diastolic 39–68; PULSE 89–99; TEMP 97.5–98.5; O2SAT 87–100
--- NOTE | 2020-06-23 05:55 | NUR ---
PT ARRIVED ON UNIT TO ICU 5 FROM ED, REPORT RECIEVED FROM CATARINO NO IN ED. PT C/O BACK PAIN THAT IS NOT NEW, AND STATES SHE CAME INTO HOPSITAL BECAUSE SHE COULD NOT BREATH. VSS AND PT CURRENTLY DENIES ANY SOB/DOA. RN ASKED PT IF SHE NEEDED SOME MEDS FOR BACK PAIN, PT STATED THAT SHE DOESNT NEED ANYTHING AT THIS TIME, RN ASSISTED PT WITH REPOSITIONING. UROLOGY CONSULT WILL BE CALLED IN THE AM WILL CONTINUE TO MONITOR PT AND UPDATE PROVIDERS NEEDED.
--- NOTE | 2020-06-23 07:23 | NUR ---
Report received from Jodie RN and care resumed.
--- NOTE | 2020-06-23 08:53 | NUR ---
Dr Urbina notifed of consult. States will be in to see pt soon.
--- NOTE | 2020-06-23 10:39 | NUR ---
Pt taken to OR at 1030 per bed. Report called to Lena TORIBIO on surgical floor. Pt to go to room 346 post op.
--- NOTE | 2020-06-23 11:14 | NUR ---
Seed Tester was able to stand outside of door and pray for patient.
--- NOTE | 2020-06-23 12:05 | NUR ---
PATIENT IS DROWSY FROM MEDICATION FROM SURGERY. PATIENT IS ABLE TO STATE HER NAME, , WHERE SHE IS AT AND THE MONTH. PATIENT IS SLIGHTLY SLOW IN HER RESPONSES. POST-OP VSS. PATIENT DENIES PAIN. 3-WAY RUVALCABA CATHETER WITH CBI DRAINING CLEAR PALE YELLOW TO RUVALCABA BAG. CALL LIGHT IN REACH. SCD'S IN PLACE. BED ALARM ON. NO NEEDS AT THIS TIME.
--- NOTE | 2020-06-23 12:54 | NUR ---
THIS NURSE SPOKE WITH RADIOLOGY. THEY ARE UNABLE TO COMPLETE THE CAROTID ULTRASOUND UNTIL THURSDAY. HOSPITALIST NOTIFED. ORDER FOR GENERAL DIET GIVEN.
--- NOTE | 2020-06-23 13:00 | NUR ---
PATIENT SHIFT ASSESSMENT COMPLETED AT THIS TIME. PATIENT TOLERATING CLEAR LIQUIDS WITHOUT N/V. PATIENT DENIES PAIN. LUNCH TRAY ORDERED.
--- NOTE | 2020-06-23 13:30 | NUR ---
PATIENT ASSISTED TO SIDE OF BED TO EAT LUNCH. PATIENT TO CALL FOR HELP WHEN LAYING BACK DOWN.
--- NOTE | 2020-06-23 15:50 | NUR ---
POST-OP VSS AND COMPLETE. CBI RUNNING SLOW WITH PALE YELLOW DRAINAGE PRESENT IN RUVALCABA BAG. NEURO CHECKS AND DETOX STABLE. PATIENT IS FREQUENTLY DROWSY BUT A&0. CALL LIGHT IN REACH.
--- NOTE | 2020-06-23 18:00 | NUR ---
PATIENT AWOKE BRIEFLY AND REFUSED DINNER AND FELL BACK ASLEEP. WILL REPORT OFF TO ONCOMING NURSE.
--- NOTE | 2020-06-23 19:44 | NUR ---
PT ASLEEP. ABLE TO WAKE PT BUT DISORIENTED. THOUGHT PRTOCESS DEFICIT AND DELAYED. POOR ATTENTION. ANMSWERTS SOME QUESTIONS CORRECTLY. CBI INFUSING SLOWLY WITH CLEAR YELLOW RERTURN. ASSISTED TI O SIDE OF BED TO EAT MEAL. CALL LIGHT IN REACH.
[2020-06-24] VITALS (11 sets, daily range): BP systolic 94–123; BP diastolic 37–97; PULSE 87–105; TEMP 97.6–98.5
--- NOTE | 2020-06-24 | NUR ---
WAKES TO SPEECH AND TOUCH. INITAIALLY CONFUSED. EYES UNFOCUSED AND LOOKS AROUND. TAKES AWHILE TO BECOME ORIENTED . CONVERSATION UNCLEAR AT FIRST. IMPROVES ALITTLE AFTER WAKING UP. CBI CONTINUES AT A, SLOW RATE. URINE CLEAR YELLOW.
--- NOTE | 2020-06-24 04:29 | NUR ---
PT AWAKE AND ALERT. AMBULATED IN [place] WITH STEADY GAIT. O2 NC 3L. LATRELL WELL. BACK TO ROOM. SEE MAR FOR PAIN MED GIVEN. URINE RREMAINS YELLOW/SL HAZY. SITTING ON SIDE OF BED. IVF'S DC'D. TAKING PO FLUIDS WELL.L CALL LIGHT IN REACHG.
[2020-06-24 07:07] LABS: BASO % 0.1 % (0.0-2.0); GRAN # 9.9 (1.4-6.5); GRAN % 88.1 % (42.2-75.2); LYMPH # 0.8 (1.2-3.4); LYMPH % 6.8 % (20.0-51.0); MEAN CELL VOLUME 101 fl (80.0-100.0); MEAN CORPUSCULAR HGB CONC 33 g/dl (33.0-37.0); MEAN PLATELET VOLUME 11.1 fl (7.4-10.4); MONO # 0.5 (0.1-0.6); MONO % 4.6 % (1.7-9.3); PLATELET COUNT 113 K/mm3 (130-400); REDCELL DISTRIBUTION WIDTH-CV 14.6 % (11.5-14.5)
[2020-06-24 07:11] LABS: CREATININE, serum 0.87 (0.52-1.25); POTASSIUM 4.9 mmol/L (3.4-5.0)
[2020-06-24 07:15] LABS: HEMATOCRIT 28.3 % (37.0-47.0); HEMOGLOBIN 9.2 g/dl (12.5-16.0); MEAN CORPUSCULAR HEMOGLOBIN 33 pg (27.0-31.0)
--- NOTE | 2020-06-24 10:31 | NUR ---
SW met with patient to complete intake. Patient provides that she lives in [facility] with her Guanakito [phone]. Patient provides that her son Edmar is her DPOA-HC, patient provides this has been documented with records at her home. Patient provides that she does not utilize any DME and is independent with ADL's, pharmacy is [facility]. Patient provides that she does not utilize any home health services and does not feel as though she will need any HH services upon discharge. Patient states that she has no concerns in regards to DC when that time comes. SW will continue to follow.
[2020-06-24 17:19] LABS: HEMOGLOBIN 9.9 g/dl (12.5-16.0)
--- NOTE | 2020-06-24 17:41 | NUR ---
Patient sitting up in chair. She tolerated sanchez removal. She showered this afternoon & has voided. She has done well with meals. Denies nausea. Tylenol for pain. Milk of mom for abd discomfort as well. Patient was very drowsy this am. I think it may have been from norco given early in the am. she is much more awake & alert now. She is hopeful for discharge tmrw. Update given to her daughter.
[2020-06-25] VITALS (7 sets, daily range): BP systolic 102–138; BP diastolic 44–78; PULSE 70–91; TEMP 97.6–98.6
[2020-06-25 07:11] LABS: BASO % 0.2 % (0.0-2.0); EOS # 0.1 (0.0-0.7); EOS % 1.5 % (0-4.0); GRAN # 3.6 (1.4-6.5); GRAN % 66.7 % (42.2-75.2); LYMPH # 1.2 (1.2-3.4); LYMPH % 23.1 % (20.0-51.0); MEAN CELL VOLUME 102 fl (80.0-100.0); MEAN CORPUSCULAR HGB CONC 33 g/dl (33.0-37.0); MEAN PLATELET VOLUME 11.1 fl (7.4-10.4); MONO # 0.4 (0.1-0.6); MONO % 7.9 % (1.7-9.3); PLATELET COUNT 84 K/mm3 (130-400); RED BLOOD COUNT 2.77 M/mm3 (4.10-5.30); REDCELL DISTRIBUTION WIDTH-CV 14.7 % (11.5-14.5)
[2020-06-25 07:13] LABS: HEMATOCRIT 28.3 % (37.0-47.0); HEMOGLOBIN 9.2 g/dl (12.5-16.0); MEAN CORPUSCULAR HEMOGLOBIN 33 pg (27.0-31.0)
[2020-06-25 07:28] LABS: CREATININE, serum 1.01 (0.52-1.25); POTASSIUM 4.3 mmol/L (3.4-5.0)
--- NOTE | 2020-06-25 16:25 | NUR ---
Patient ready for discharge. Orders obtained from hospitalist. They spoke to her & questions were answered. Int dc. We reviewed changes in home meds list. Follow up appts scheduled & reviewed. Patient continued to void adequately. Yellow, sediment urine. Patient worked with therapy & ambulated in halls with walker. She is ready to be home. Her daughter taking her home.
== END 2020-06-25 16:31 | disposition home or self-care (01) | DRG 695 ==
LOC: COL.ER 21:03 → ICU 06-23 00:16 → SURG 06-23 10:30
PROVIDERS: Emergency Medicine; Physician Assistant; Student in an Organized Health Care Education/Training Program; Urology; ADMIT Hospitalist
PROC: 0TCB8ZZ Extirpation of Matter from Bladder, Via Natural or Artificial Opening Endoscopic (ICD-10-PCS; principal; 2020-06-23 10:00)
DX: R31.0 Gross hematuria (principal); G93.41 Metabolic encephalopathy; J96.10 Chronic respiratory failure, unspecified whether with hypoxia or hypercapnia; K76.6 Portal hypertension; R33.8 Other retention of urine; Z99.81 Dependence on supplemental oxygen; J44.9 Chronic obstructive pulmonary disease, unspecified; K74.60 Unspecified cirrhosis of liver; G47.33 Obstructive sleep apnea (adult) (pediatric); G62.9 Polyneuropathy, unspecified; D64.9 Anemia, unspecified; D69.6 Thrombocytopenia, unspecified; G89.29 Other chronic pain; M54.9 Dorsalgia, unspecified; N20.0 Calculus of kidney; N18.9 Chronic kidney disease, unspecified; K71.3 Toxic liver disease with chronic persistent hepatitis; Z87.891 Personal history of nicotine dependence; Z86.19 Personal history of other infectious and parasitic diseases
CPT/HCPCS: 99222-AI; 99232-AI; 99239; J2704; J2930; J3480; J7030; Q9967

== ENCOUNTER → 2020-07-31 | Outpatient (CLI) | payer MEDICARE, OTHER | LOC: COL.VAS 12:30 | DX: I08.1 Rheumatic disorders of both mitral and tricuspid valves (principal) ==

== ENCOUNTER → 2020-08-07 | Outpatient (CLI) | payer MEDICARE, OTHER | LOC: COL.RAD 09:58 | DX: G43.719 Chronic migraine without aura, intractable, without status migrainosus (principal); G31.9 Degenerative disease of nervous system, unspecified; E23.6 Other disorders of pituitary gland ==

== ENCOUNTER 2020-08-10 07:48 | Day surgery (SDC) | payer MEDICARE, OTHER ==
[~2020-08-10] VITALS: Ht 157.5 cm; Wt 125.7 kg
[2020-08-10] MEDS ORDERED: NORCO 325 MG-51 TAB PO (08:11)
[2020-08-10] MEDS ORDERED: AMITRIPTYLINE H50 M1 PO (08:14)
[2020-08-10 08:28] VITALS: BP 142/50; PULSE 91; TEMP 97.9
[2020-08-10 10:00] VITALS: BP 122/67; PULSE 79
[2020-08-10 10:15] VITALS: BP 118/59; PULSE 79
--- NOTE | 2020-08-10 10:27 | NUR ---
1020 PATIENT SITTING IN CHAIR. NO COMPLAINTS. NO DIZZINESS NO NAUSEA. DR AT BEDSIDE TO SPEAK WITH PATIENT 1021. NAEEM REMOVED FROM RIGHT FOREARM 1025. UP TO GET DRESSED. DISMISSAL INSTRUCTIONS GIVEN AND EXPLAINED. VERBAL UNDERSTANDING GIVEN. WRITTEN COPIES SENT WITH PATIENT.
--- NOTE | 2020-08-10 12:09 | NUR ---
1050 PATIENT ESCORTED OUT OF UNIT TO WASTE HAND VIA WHEELCHAIR.
== END 2020-08-10 13:01 | disposition home or self-care (01) ==
LOC: SDCO 07:48
DX: K74.60 Unspecified cirrhosis of liver (principal); I85.10 Secondary esophageal varices without bleeding; K76.6 Portal hypertension; J43.9 Emphysema, unspecified; E66.01 Morbid (severe) obesity due to excess calories; Z90.710 Acquired absence of both cervix and uterus; Z79.84 Long term (current) use of oral hypoglycemic drugs; G47.33 Obstructive sleep apnea (adult) (pediatric); Z99.81 Dependence on supplemental oxygen; K21.9 Gastro-esophageal reflux disease without esophagitis; G89.29 Other chronic pain; E11.42 Type 2 diabetes mellitus with diabetic polyneuropathy; Z86.16 Personal history of COVID-19
CPT/HCPCS: J2704

== ENCOUNTER → 2020-11-22 | Outpatient (CLI) | payer MEDICARE, OTHER ==
[~2020-11-22] MED LIST changes: +AMITRIPTYLINE H50 M1 PO
== END ==
LOC: SDCO 11-19 15:00 → ZCOL.LAB 12:00 → SDCO 15:00 → EDSTATUS 15:00
DX: N20.1 Calculus of ureter (principal); Z20.822 Contact with and (suspected) exposure to COVID-19

== ENCOUNTER → 2020-12-17 | Outpatient (CLI) | payer MEDICARE, OTHER | LOC: ZCOL.LAB 09:07 | DX: Z01.812 Encounter for preprocedural laboratory examination (principal); Z20.822 Contact with and (suspected) exposure to COVID-19 ==

== ENCOUNTER → 2021-02-27 | Outpatient (CLI) | payer MEDICARE, OTHER | LOC: COL.RAD 10:00 | DX: R10.13 Epigastric pain (principal) | CPT/HCPCS: A9537 ==

== ENCOUNTER 2021-07-04 13:31 | Emergency (ER) | payer MEDICARE, OTHER ==
[~2021-07-04] VITALS: Ht 157.5 cm; Wt 127.3 kg
[2021-07-04 14:01] LABS: EOS # 0.1 K/mm3 (0.0-0.7); EOS % 3.1 % (0-4.0); GRAN % 68.2 % (42.2-75.2); HEMATOCRIT 28.5 % (37.0-47.0); HEMOGLOBIN 8.7 g/dl (12.5-16.0); LYMPH # 0.6 K/mm3 (1.2-3.4); LYMPH % 19.9 % (20.0-51.0); MEAN CELL VOLUME 92 fl (80.0-100.0); MEAN CORPUSCULAR HEMOGLOBIN 28 pg (27.0-31.0); MEAN CORPUSCULAR HGB CONC 31 g/dl (33.0-37.0); MONO # 0.2 K/mm3 (0.1-0.6); MONO % 7.5 % (1.7-9.3); PLATELET COUNT 68 K/mm3 (130-400); REDCELL DISTRIBUTION WIDTH-CV 17.2 % (11.5-14.5)
[2021-07-04 14:19] LABS: ALANINE AMINOTRANSFERASE 20 U/L (0-55); ALKALINE PHOSPHATASE 114 U/L (40-150); ANION GAP 8 mmol/L (7-16); AST,SGOT 41 U/L (5-34); BILIRUBIN,TOTAL 1.4 mg/dL (0.2-1.2); BLOOD UREA NITROGEN 13 mg/dL (10-20); CALCIUM 8.7 mg/dL (8.4-10.2); CARBON DIOXIDE 30 mmol/L (23-31); CHLORIDE 103 mmol/L (98-107); CREATININE, serum 0.78 mg/dL (0.57-1.11); GLUCOSE 149 mg/dL (70-99); POTASSIUM 4.1 mmol/L (3.5-4.5); SODIUM 141 mmol/L (136-145); TOTAL PROTEIN 6.2 gm/dL (6.2-8.1)
[2021-07-04 14:24] LABS: ARTERIAL BLD GAS O2 SATURATION 97.2 % (92-100); ARTERIAL BLD GAS TCO2 CT 29.7; ARTERIAL BLOOD GAS BASE EXCESS 2.9 (-2-2); ARTERIAL BLOOD GAS HCO3 28.3 meq/L (22-26); ARTERIAL BLOOD GAS PCO2 47.1 mmHg (35-45); ARTERIAL BLOOD GAS PO2 97.3 mmHg (80-100)
[2021-07-04 14:40] LABS: TSH w REFLEX 0.724 uIU/mL (0.350-4.940)
[2021-07-04 14:42] LABS: TROPONIN-I < 0.010 ng/mL (0.00-0.033)
[2021-07-04] MEDS ORDERED: PREDNISONE50 MG PO (15:18)
[2021-07-04] MEDS ORDERED: ZITHROMAX Z PA250 MG PO (15:18)
[2021-07-04 16:32] VITALS: BP 106/82; PULSE 84; TEMP 98.4
== END 2021-07-04 16:32 | disposition home or self-care (01) ==
LOC: COL.ER 13:31
PROVIDERS: Emergency Medicine
DX: J44.9 Chronic obstructive pulmonary disease, unspecified (principal); Z99.81 Dependence on supplemental oxygen; Z20.822 Contact with and (suspected) exposure to COVID-19
CPT/HCPCS: J2930

== ENCOUNTER → 2021-08-14 | Outpatient (CLI) | payer MEDICARE, OTHER ==
[~2021-08-14] MED LIST changes: +PREDNISONE50 MG PO; +ZITHROMAX Z PA250 MG PO
== END ==
LOC: COL.RAD 10:30
DX: K80.80 Other cholelithiasis without obstruction (principal); K76.6 Portal hypertension; R94.5 Abnormal results of liver function studies; K72.90 Hepatic failure, unspecified without coma

== ENCOUNTER 2021-12-09 15:08 | Observation (INO) | payer MEDICARE, OTHER ==
[~2021-12-09] VITALS: Ht 172.7 cm; Wt 111.4 kg
[2021-12-09 15:46] LABS: COLLECTION METHOD CATHETER
[2021-12-09 16:09] LABS: MUCOUS Present (NOT PRESENT); PH 6 (5-8); SQUAMOUS EPITHELIAL 0-2 /hpf (0-10); URINE APPEARANCE Cloudy (CLEAR/HAZY); URINE BACTERIA None Seen /hpf (NONE SEEN); URINE BILIRUBIN Negative (NEGATIVE); URINE BLOOD Negative (NEGATIVE); URINE COLOR Yellow (YELLOW); URINE GLUCOSE Negative (NEGATIVE); URINE KETONE Negative (NEGATIVE); URINE LEUKOCYTE ESTERASE 3+ (NEGATIVE); URINE NITRATE Negative (NEGATIVE); URINE PROTEIN(semi-quant) Negative (NEGATIVE); URINE UROBILINOGEN Negative (NEGATIVE)
[2021-12-09 16:15] LABS: BASO % 0.7 % (0.0-2.0); EOS # 0.1 K/mm3 (0.0-0.7); EOS % 3.8 % (0.0-4.0); GRAN # 1.6 K/mm3 (1.4-6.5); GRAN % 54.5 % (42.2-75.2); LYMPH # 0.9 K/mm3 (1.2-3.4); LYMPH % 29.3 % (20.0-51.0); MEAN CELL VOLUME 95 fl (80.0-100.0); MEAN CORPUSCULAR HGB CONC 32 g/dl (33.0-37.0); MEAN PLATELET VOLUME 11.9 fl (7.4-10.4); MONO # 0.3 K/mm3 (0.1-0.6); MONO % 11.4 % (1.7-9.3); PLATELET COUNT 76 K/mm3 (130-400); RED BLOOD COUNT 2.87 M/mm3 (4.10-5.30); REDCELL DISTRIBUTION WIDTH-CV 19.3 % (11.5-14.5)
[2021-12-09 16:16] LABS: HEMATOCRIT 27.3 % (37.0-47.0); HEMOGLOBIN 8.7 g/dl (12.5-16.0); MEAN CORPUSCULAR HEMOGLOBIN 30 pg (27-31)
[2021-12-09 16:30] LABS: ALBUMIN 2.9 gm/dL (3.4-4.8); CALCIUM 8.2 mg/dL (8.4-10.2); CREATININE, serum 1.02 mg/dL (0.57-1.11); POTASSIUM 4.3 mmol/L (3.5-4.5); TOTAL PROTEIN 6.3 gm/dL (6.2-8.1)
[2021-12-09] MEDS ORDERED: ARICEPT ODT5 MG PO (16:46)
[2021-12-09] MEDS ORDERED: OSCAL 500 TAB500 MG PO (16:46)
[2021-12-09] MEDS ORDERED: ALDACTONE 25MG25 M1 PO (16:47)
--- NOTE | 2021-12-09 18:20 | NUR ---
PT TO FLOOR FROM ER. PT LAYING SUPINE IN BED ON 4LIT VIA NC. PT WAS INCONT OF URINE. PT WAS CLEANED UP AND FRESH GOWN PLACED. PT IS CONFUSED AND DOES HAVE AMS. CJ BANDAGE ON LEFT ARM IS DRY AND INTACT. CALL LIGHT PLACED WITHIN REACH AND ORIENTED ON USE. BED ALARM ON.
[2021-12-09 20:11] VITALS: BP 136/65; PULSE 83; TEMP 97.7
[2021-12-10 00:26] VITALS: BP 138/59; PULSE 93; TEMP 97.7
[2021-12-10 04:28] VITALS: BP 150/57; PULSE 98; TEMP 98.1
[2021-12-10 06:25] LABS: BASO % 0.6 % (0.0-2.0); EOS # 0.1 K/mm3 (0.0-0.7); EOS % 1.5 % (0.0-4.0); GRAN # 4.2 K/mm3 (1.4-6.5); LYMPH # 0.4 K/mm3 (1.2-3.4); LYMPH % 7.7 % (20.0-51.0); MEAN CELL VOLUME 96 fl (80.0-100.0); MEAN CORPUSCULAR HGB CONC 32 g/dl (33.0-37.0); MEAN PLATELET VOLUME 11.7 fl (7.4-10.4); MONO # 0.5 K/mm3 (0.1-0.6); PLATELET COUNT 70 K/mm3 (130-400); RED BLOOD COUNT 3.18 M/mm3 (4.10-5.30); REDCELL DISTRIBUTION WIDTH-CV 19.9 % (11.5-14.5)
[2021-12-10 06:28] LABS: HEMATOCRIT 30.4 % (37.0-47.0); HEMOGLOBIN 9.6 g/dl (12.5-16.0); MEAN CORPUSCULAR HEMOGLOBIN 30 pg (27-31)
[2021-12-10 06:41] LABS: CALCIUM 8.3 mg/dL (8.4-10.2); CREATININE, serum 0.96 mg/dL (0.57-1.11); MAGNESIUM 2.1 mg/dL (1.6-2.6); POTASSIUM 4.4 mmol/L (3.5-4.5)
[2021-12-10 07:14] VITALS: BP 133/87; PULSE 98; TEMP 98.2
--- NOTE | 2021-12-10 07:17 | NUR ---
BEDSIDE SHIFT REPORT GIVEN TO THIS NURSE. PATIENT IN STABLE CONDITION AT THIS TIME
[2021-12-10 11:13] VITALS: BP 140/46; PULSE 99; TEMP 98.1
--- NOTE | 2021-12-10 13:04 | NUR ---
Serenity: Bahai Situation: Service Dog Trainer stopped by on rounds Background: Pt seemed well rested and without any needs Assessment: PT seemed content Recommendation: Service Dog Trainer will follow up as needed
--- NOTE | 2021-12-10 15:14 | NUR ---
The patient was downgraded to observation status. The patient has been having confusion. She does not know the month or year. LING contacted the patient's , Guanakito, to update on status change and discuss discharge plan. LING informed Guanakito of the patient being downgraded to observation status and read the Medicare Outpatient Observation Notice Form outloud to him over the phone. Guanakito verbalized understanding and gave LING approval to sign the form on his behalf. The patient lives in [place] with her . Guanakito reports that the patient is independent with ADLs and has a walker and home oxygen from [facility]. The patient's PCP is Dr. Franck Andrew. The patient's DPOA-HC is in EMR and it designates her and son, Edmar Suresh. PT is recommending home. OT is recommending home health. LING discussed home health with Guanakito. Guanakito is open to home health and states that he had home health in the past and would like to use the agency he went with, [facility]. LING attempted to contact Laina at [facility]. LING left her a voicemail and faxed over the referral. Awaiting screen. *Discharge plan: home with and home health*
[2021-12-10 15:24] VITALS: BP 132/47; PULSE 95; TEMP 98.4
[2021-12-10 20:20] VITALS: BP 132/44; PULSE 100; TEMP 98.3
[2021-12-11 00:19] VITALS: BP 146/65; PULSE 94; TEMP 98
[2021-12-11 04:30] VITALS: BP 152/55; PULSE 82; TEMP 98.4
[2021-12-11 06:39] LABS: BASO % 0.7 % (0.0-2.0); EOS # 0.1 K/mm3 (0.0-0.7); EOS % 2.2 % (0.0-4.0); GRAN # 3.3 K/mm3 (1.4-6.5); LYMPH # 0.8 K/mm3 (1.2-3.4); LYMPH % 18.3 % (20.0-51.0); MEAN CELL VOLUME 98 fl (80.0-100.0); MEAN CORPUSCULAR HGB CONC 32 g/dl (33.0-37.0); MEAN PLATELET VOLUME 11.9 fl (7.4-10.4); MONO # 0.4 K/mm3 (0.1-0.6); MONO % 7.6 % (1.7-9.3); PLATELET COUNT 72 K/mm3 (130-400); RED BLOOD COUNT 2.94 M/mm3 (4.10-5.30); REDCELL DISTRIBUTION WIDTH-CV 19.6 % (11.5-14.5)
[2021-12-11 06:41] LABS: HEMATOCRIT 28.8 % (37.0-47.0); HEMOGLOBIN 9.1 g/dl (12.5-16.0); MEAN CORPUSCULAR HEMOGLOBIN 31 pg (27-31)
[2021-12-11 06:50] LABS: BILIRUBIN,TOTAL 1.8 mg/dL (0.2-1.2); CREATININE, serum 1.11 mg/dL (0.57-1.11); MAGNESIUM 2.1 mg/dL (1.6-2.6); POTASSIUM 4.1 mmol/L (3.5-4.5); TOTAL PROTEIN 6.6 gm/dL (6.2-8.1)
[2021-12-11 07:18] VITALS: BP 130/51; PULSE 79; TEMP 97.6
--- NOTE | 2021-12-11 09:53 | NUR ---
Patient sleeping in the recliner upon entering the room. Patient c/o abdmoninal pain, rating it at an 8/10. MRI of the abdomen to be completed. Patient A&Ox4, and a SBA. Call light is w/in reach. Patient is hopeful that she will discharge today. Has concerns about insurance coverage.
--- NOTE | 2021-12-11 10:09 | NUR ---
Laina, at [facility], reports that they are able to accept the patient for services.
[2021-12-11 11:06] VITALS: BP 128/48; PULSE 80; TEMP 98.4
[2021-12-11] MEDS ORDERED: ZOFRAN ODT4 MG PO (16:47)
[2021-12-11] MEDS ORDERED: LACTULOSE10 GM/153 PO (16:47)
[2021-12-11] MEDS ORDERED: LEVAQUIN 5500 MG/TA1 PO (16:48)
--- NOTE | 2021-12-11 17:23 | NUR ---
Patient discharged home. IV and telemetry removed by this RN. All education/instructions discussed w/ patient and her at the bedside. Patient verbalized understanding and signed appropriate discharge paperwork. Patient denies any concerns at the time of discharge.
--- NOTE | 2021-12-12 13:49 | NUR ---
The patient discharged back home yesterday evening, 12/11, with home health services for residential/PT/OT from [facility]. LING notified Laina at [facility] today of the patient being discharged yesterday evening and faxed her discharge orders. No additional needs at this time.
== END 2021-12-11 17:30 | disposition home health service (06) ==
LOC: COL.ER 15:08 → MEDICAL 16:51
PROVIDERS: Personal Emergency Response Attendant; ADMIT Internal Medicine
DX: G93.41 Metabolic encephalopathy (principal); N39.0 Urinary tract infection, site not specified; K74.60 Unspecified cirrhosis of liver; E72.20 Disorder of urea cycle metabolism, unspecified; F03.90 Unspecified dementia, unspecified severity, without behavioral disturbance, psychotic disturbance, mood disturbance, and anxiety; F32.A Depression, unspecified; D64.9 Anemia, unspecified; D69.6 Thrombocytopenia, unspecified; J96.11 Chronic respiratory failure with hypoxia; J44.9 Chronic obstructive pulmonary disease, unspecified; G62.9 Polyneuropathy, unspecified; G47.33 Obstructive sleep apnea (adult) (pediatric); Z87.891 Personal history of nicotine dependence; Z79.891 Long term (current) use of opiate analgesic; Z99.81 Dependence on supplemental oxygen
CPT/HCPCS: 99223-AI; 99232-AI; G0378; J0696; J1644; J7030; Q9967

== ENCOUNTER → 2021-12-31 | Outpatient (CLI) | payer MEDICARE, OTHER ==
[~2021-12-31] MED LIST changes: +ALDACTONE 25MG25 M1 PO; +ARICEPT ODT5 MG PO; +LACTULOSE10 GM/153 PO; +OSCAL 500 TAB500 MG PO
== END ==
LOC: COL.RAD 12-27 09:45
DX: G43.119 Migraine with aura, intractable, without status migrainosus (principal); G30.1 Alzheimer's disease with late onset; F02.80 Dementia in other diseases classified elsewhere, unspecified severity, without behavioral disturbance, psychotic disturbance, mood disturbance, and anxiety; G47.33 Obstructive sleep apnea (adult) (pediatric); R27.0 Ataxia, unspecified; R73.09 Other abnormal glucose; R25.1 Tremor, unspecified; Z79.899 Other long term (current) drug therapy
CPT/HCPCS: A9575

== ENCOUNTER → 2022-01-21 | Outpatient (CLI) | payer MEDICARE, OTHER | LOC: COL.RAD 10:30 | DX: K74.60 Unspecified cirrhosis of liver (principal); K72.90 Hepatic failure, unspecified without coma; K76.6 Portal hypertension; R94.5 Abnormal results of liver function studies; R60.0 Localized edema ==

== ENCOUNTER 2022-02-04 04:21 | Inpatient (IN) | payer MEDICARE, OTHER ==
[~2022-02-04] VITALS: Ht 157.5 cm; Wt 133.0 kg
[2022-02-04 04:37] LABS: BASO % 0.2 % (0.0-2.0); EOS % 0.5 % (0.0-4.0); GRAN # 3.2 K/mm3 (1.4-6.5); GRAN % 76.5 % (42.2-75.2); LYMPH # 0.4 K/mm3 (1.2-3.4); LYMPH % 10.5 % (20.0-51.0); MEAN CELL VOLUME 102 fl (80.0-100.0); MEAN CORPUSCULAR HGB CONC 32 g/dl (33.0-37.0); MONO # 0.5 K/mm3 (0.1-0.6); MONO % 12.1 % (1.7-9.3); PLATELET COUNT 59 K/mm3 (130-400); RED BLOOD COUNT 2.94 M/mm3 (4.10-5.30); REDCELL DISTRIBUTION WIDTH-CV 16.4 % (11.5-14.5)
[2022-02-04 04:40] LABS: HEMOGLOBIN 9.6 g/dl (12.5-16.0); MEAN CORPUSCULAR HEMOGLOBIN 33 pg (27-31)
[2022-02-04 04:52] LABS: BILIRUBIN,TOTAL 2.1 mg/dL (0.2-1.2); CALCIUM 9.6 mg/dL (8.4-10.2); CREATININE, serum 1.09 mg/dL (0.57-1.11); TOTAL PROTEIN 6.6 gm/dL (6.2-8.1)
[2022-02-04 05:04] LABS: COLLECTION METHOD CLEAN CATCH
[2022-02-04] MEDS ORDERED: WELLBUTRIN XL150 MG PO (05:18)
[2022-02-04] MEDS ORDERED: CIPRO 500MG TA500 MG PO (05:18)
[2022-02-04 05:19] LABS: BUDDING YEAST Present (NOT PRESENT); MUCOUS Present (NOT PRESENT); PH 6 (5-8); SQUAMOUS EPITHELIAL 0-2 /hpf (0-10); URINE APPEARANCE Cloudy (CLEAR/HAZY); URINE BACTERIA Rare /hpf (NONE SEEN); URINE BILIRUBIN Negative (NEGATIVE); URINE BLOOD 2+ (NEGATIVE); URINE COLOR Yellow (YELLOW); URINE GLUCOSE Negative (NEGATIVE); URINE KETONE Negative (NEGATIVE); URINE LEUKOCYTE ESTERASE 3+ (NEGATIVE); URINE NITRATE Positive (NEGATIVE); URINE PROTEIN(semi-quant) Negative (NEGATIVE); URINE UROBILINOGEN Negative (NEGATIVE)
[2022-02-04] MEDS ORDERED: IPRATROPIUM BROM3 M1 IH (05:19)
[2022-02-04] MEDS ORDERED: AMITRIPTYLINE H75 M1 PO (05:19)
[2022-02-04] MEDS ORDERED: CALPHRON667 MG PO (05:20)
[2022-02-04] MEDS ORDERED: ARICEPT10 MG PO (05:20)
[2022-02-04] MEDS ORDERED: ENTRESTO 49 MG1 EACH PO (05:20)
[2022-02-04] MEDS ORDERED: FERROUSAL325 MG PO (05:21)
[2022-02-04] MEDS ORDERED: MELATONIN5 M1 PO (05:21)
[2022-02-04] MEDS ORDERED: PRILOSEC 20MG20 MG PO (05:22)
[2022-02-04] MEDS ORDERED: NORFLEX 10100 MG/TAB PO (05:22)
[2022-02-04] MEDS ORDERED: MEGA MULTIVITAM1 TAB PO (05:22)
[2022-02-04] MEDS ORDERED: PROBIOTIC BLEN1 EACH PO (05:23)
[2022-02-04] MEDS ORDERED: XIFAXAN550 MG PO (05:23)
[2022-02-04] MEDS ORDERED: VITAMIN E1000 U/CAP PO (05:24)
[2022-02-04] MEDS ORDERED: DEMADEX 20MG20 M1 PO (05:24)
[2022-02-04] MEDS ORDERED: ALDACTONE 25MG25 M1 PO (05:24)
[2022-02-04 08:00] VITALS: BP 102/47; PULSE 98; TEMP 98.2
--- NOTE | 2022-02-04 10:11 | NUR ---
The patient is COVID positive. SW contacted the patient's , Guanakito (ph#[phone]), to discuss discharge plan. The patient lives in [place] with her . Their son, Mik, is staying with them temporarily. Guanakito reports that the patient has been independent with ADLs and that she has a walker and home oxygen from [facility]. He states that the patient was on 4 liters at home, but that the patient just had an appointment with Blossom Ortez PA-C and she informed them that the patient just needed 2-3 liters now. The patient used to have home health services from [facility], but Guanakito reports that she is no longer receiving services. The patient's PCP is Dr. Franck Andrew. The patient's DPOA-HC is in EMR and it designates her or son, Edmar Suresh. Guanakito reports that the plan is for the patient to return back home with him upon discharge. SW to ask for PT/OT to be ordered. *Discharge plan: home with family. Will await PT/OT evals*
[2022-02-04 12:00] VITALS: BP 110/50; PULSE 95; TEMP 98
[2022-02-04 15:21] VITALS: BP 122/37; PULSE 93; TEMP 98.4
[2022-02-04 20:14] VITALS: BP 136/50; PULSE 92; TEMP 98.1
--- NOTE | 2022-02-04 23:07 | NUR ---
PT ASSESSED AROUND 2019. DENIES PAIN. ON 2L 02, BREATHING NORMALLY.
[2022-02-04 23:08] VITALS: BP 132/48; PULSE 84; TEMP 97.8
[2022-02-05 07:58] VITALS: BP 120/50; PULSE 72; TEMP 97.7
--- NOTE | 2022-02-05 09:15 | NUR ---
PATIENT IV TO LEFT WRIST INFILTRATED. PAIN WITH FLUSHING, NO BLOOD RETURN, MILD SWELLING NOTED AT SITE WITH WARMTH. REMOVED.
[2022-02-05 11:13] LABS: BASO % 0.2 % (0.0-2.0); GRAN # 3.5 K/mm3 (1.4-6.5); GRAN % 84.3 % (42.2-75.2); LYMPH # 0.4 K/mm3 (1.2-3.4); MEAN CELL VOLUME 100 fl (80.0-100.0); MEAN CORPUSCULAR HGB CONC 32 g/dl (33.0-37.0); MEAN PLATELET VOLUME 11.8 fl (7.4-10.4); MONO # 0.3 K/mm3 (0.1-0.6); MONO % 6.3 % (1.7-9.3); PLATELET COUNT 58 K/mm3 (130-400); RED BLOOD COUNT 2.92 M/mm3 (4.10-5.30); REDCELL DISTRIBUTION WIDTH-CV 15.9 % (11.5-14.5)
[2022-02-05 11:16] LABS: HEMATOCRIT 29.2 % (37.0-47.0); HEMOGLOBIN 9.4 g/dl (12.5-16.0); MEAN CORPUSCULAR HEMOGLOBIN 32 pg (27-31)
[2022-02-05 12:05] VITALS: BP 118/54; PULSE 75; TEMP 97.5
[2022-02-05 15:33] VITALS: BP 148/40; PULSE 76; TEMP 97.6
--- NOTE | 2022-02-05 15:42 | NUR ---
PATIENT DOING WELL THIS SHIFT. NO COMPLAINTS. PATIENT TYPICALLY WEARS 4L O2 AT HOME, DOWN TO 2L HERE AND TOLERATING WELL. USES WALKER FOR AMBULATION, HAS STEADY GAIT. A&O X4. 1500ML FLUID RESTRICTION IN PLACE. TAKES MEDS WHOLE. FEEDS SELF. ABLE TO COMPLETE ADLS ON OWN.
--- NOTE | 2022-02-05 16:50 | NUR ---
NEW IV START TO RIGHT HAND, 22.
[2022-02-05 20:21] VITALS: BP 118/58; PULSE 73; TEMP 98.3
[2022-02-05 23:34] VITALS: BP 135/56; PULSE 74; TEMP 97.8
[2022-02-06 03:50] VITALS: BP 131/59; PULSE 69; TEMP 97.4
[2022-02-06 07:00] VITALS: BP 128/57; PULSE 62; TEMP 97.5
[2022-02-06 07:45] LABS: BASO % 0.2 % (0.0-2.0); GRAN # 5.5 K/mm3 (1.4-6.5); GRAN % 87.7 % (42.2-75.2); LYMPH # 0.4 K/mm3 (1.2-3.4); LYMPH % 6.7 % (20.0-51.0); MEAN CELL VOLUME 101 fl (80.0-100.0); MEAN CORPUSCULAR HGB CONC 32 g/dl (33.0-37.0); MEAN PLATELET VOLUME 11.9 fl (7.4-10.4); MONO # 0.3 K/mm3 (0.1-0.6); MONO % 4.9 % (1.7-9.3); PLATELET COUNT 64 K/mm3 (130-400); RED BLOOD COUNT 2.97 M/mm3 (4.10-5.30); REDCELL DISTRIBUTION WIDTH-CV 15.8 % (11.5-14.5)
[2022-02-06 07:48] LABS: HEMOGLOBIN 9.6 g/dl (12.5-16.0); MEAN CORPUSCULAR HEMOGLOBIN 32 pg (27-31)
[2022-02-06 07:59] LABS: INR 1.2 (0.8-3.0); PROTHROMBIN TIME 14.3 SECONDS (9.7-12.8)
[2022-02-06 08:05] LABS: ALBUMIN 2.9 gm/dL (3.4-4.8); BILIRUBIN,TOTAL 0.7 mg/dL (0.2-1.2); C-REACTIVE PROTEIN 1.55 mg/dL (0.00-0.50); CALCIUM 9.5 mg/dL (8.4-10.2); CREATININE, serum 0.98 mg/dL (0.57-1.11); POTASSIUM 4.6 mmol/L (3.5-4.5); TOTAL PROTEIN 6.5 gm/dL (6.2-8.1)
[2022-02-06] MEDS ORDERED: RT Albuterol HFA MDI IH (09:29)
[2022-02-06] MEDS ORDERED: MONODOX100 PO (09:29)
[2022-02-06] MEDS ORDERED: DECADRON6 MG PO (09:32)
--- NOTE | 2022-02-06 10:08 | NUR ---
The hospitalist notified LING that the patient is to discharge today and the patient is interested in home health. LING contacted the patient. The patient confirms she would be interested in home health and would like to use [facility] again. LING contacted and faxed a referral to Cheng at [facility]. Cheng reports that they are able to accept the patient. LING attempted to contact and update the patient's , Guanakito. LING left him a voicemail. The patient is to discharge back home with her family today, 02/06, with home health services for half-way/PT/OT from [facility]. LING faxed orders to [facility]. No additional needs at this time.
== END 2022-02-06 11:00 | disposition home health service (06) | DRG 177 ==
LOC: COL.ER 04:21 → MEDICAL 05:50
PROVIDERS: Family Medicine; ADMIT Internal Medicine
DX: U07.1 COVID-19 (principal); J12.82 Pneumonia due to coronavirus disease 2019; N39.0 Urinary tract infection, site not specified; E87.2 Acidosis; J96.11 Chronic respiratory failure with hypoxia; Z68.43 Body mass index [BMI] 50.0-59.9, adult; J44.9 Chronic obstructive pulmonary disease, unspecified; G89.29 Other chronic pain; M54.9 Dorsalgia, unspecified; G47.33 Obstructive sleep apnea (adult) (pediatric); K70.30 Alcoholic cirrhosis of liver without ascites; D69.6 Thrombocytopenia, unspecified; F32.A Depression, unspecified; F03.90 Unspecified dementia, unspecified severity, without behavioral disturbance, psychotic disturbance, mood disturbance, and anxiety; G62.9 Polyneuropathy, unspecified; K21.9 Gastro-esophageal reflux disease without esophagitis; D53.9 Nutritional anemia, unspecified; E66.01 Morbid (severe) obesity due to excess calories; B96.20 Unspecified Escherichia coli [E. coli] as the cause of diseases classified elsewhere; Z87.442 Personal history of urinary calculi; Z91.048 Other nonmedicinal substance allergy status; Z99.81 Dependence on supplemental oxygen; Z90.710 Acquired absence of both cervix and uterus; Z90.89 Acquired absence of other organs; Z87.891 Personal history of nicotine dependence
CPT/HCPCS: J0696; J1650; J1956; J7030; J8540

== ENCOUNTER 2022-05-30 16:35 | Inpatient (IN) | payer MEDICARE, OTHER ==
[~2022-05-30] VITALS: Ht 160 cm; Wt 127.3 kg
[~2022-05-30 16:35] MED LIST changes: +ARICEPT10 MG PO; +AZO-CRANBERRY450 MG PO; +CALPHRON667 MG PO; +DEMADEX 20MG20 M1 PO; +ENTRESTO 49 MG1 EACH PO; +FERROUSAL325 MG PO; +IPRATROPIUM BROM3 M1 IH; +MEGA MULTIVITAM1 TAB PO; +MELATONIN5 M1 PO; +MONODOX100 PO; +PRILOSEC 20MG20 MG PO; +PROBIOTIC BLEN1 EACH PO; +RT Albuterol HFA MDI IH; +VITAMIN E1000 U/CAP PO; +WELLBUTRIN XL150 MG PO; +XIFAXAN550 MG PO
[2022-05-30 17:26] LABS: BASO % 0.6 % (0.0-2.0); EOS # 0.1 K/mm3 (0.0-0.7); EOS % 4.1 % (0.0-4.0); GRAN % 64.4 % (42.2-75.2); HEMATOCRIT 37.6 % (37.0-47.0); HEMOGLOBIN 12.9 g/dl (12.5-16.0); LYMPH # 0.7 K/mm3 (1.2-3.4); LYMPH % 22.1 % (20.0-51.0); MEAN CELL VOLUME 100 fl (80.0-100.0); MEAN CORPUSCULAR HEMOGLOBIN 34 pg (27-31); MEAN CORPUSCULAR HGB CONC 34 g/dl (33.0-37.0); MEAN PLATELET VOLUME 11.3 fl (7.4-10.4); MONO # 0.3 K/mm3 (0.1-0.6); MONO % 8.5 % (1.7-9.3); PLATELET COUNT 70 K/mm3 (130-400); RED BLOOD COUNT 3.77 M/mm3 (4.10-5.30); REDCELL DISTRIBUTION WIDTH-CV 16.9 % (11.5-14.5)
[2022-05-30 17:47] LABS: ALANINE AMINOTRANSFERASE 25 U/L (0-55); ALBUMIN 2.8 gm/dL (3.4-4.8); ALKALINE PHOSPHATASE 115 U/L (40-150); ANION GAP 9 mmol/L (7-16); AST,SGOT 39 U/L (5-34); BILIRUBIN,TOTAL 1.6 mg/dL (0.2-1.2); BLOOD UREA NITROGEN 22 mg/dL (10-20); C-REACTIVE PROTEIN 0.53 mg/dL (0.00-0.50); CALCIUM 9.6 mg/dL (8.4-10.2); CARBON DIOXIDE 29 mmol/L (23-31); CHLORIDE 105 mmol/L (98-107); GLUCOSE 94 mg/dL (70-99); POTASSIUM 3.9 mmol/L (3.5-4.5); SODIUM 143 mmol/L (136-145); TOTAL PROTEIN 6.5 gm/dL (6.2-8.1)
[2022-05-30 17:56] LABS: TROPONIN-I < 0.010 ng/mL (0.00-0.033)
[2022-05-30 18:27] LABS: COLLECTION METHOD CLEAN CATCH
[2022-05-30 18:45] LABS: SQUAMOUS EPITHELIAL 0-2 /hpf (0-10); URINE BACTERIA Rare /hpf (NONE SEEN); URINE RBC >50 /hpf (0-2)
[2022-05-30 18:46] LABS: PH 8.5 (5.0-8.5); URINE APPEARANCE Cloudy (CLEAR/HAZY); URINE COLOR Yellow (YELLOW); URINE PROTEIN(semi-quant) 1+ (NEGATIVE)
[2022-05-30 18:47] LABS: URINE BLOOD 3+ (NEGATIVE); URINE GLUCOSE Negative (NEGATIVE); URINE KETONE Negative (NEGATIVE); URINE NITRATE Positive (NEGATIVE); URINE UROBILINOGEN 0.2 E.U/dL (0.2-1.0)
[2022-05-30 21:41] LABS: INR 1.3 (0.8-3.0); PHOSPHOROUS 3.1 mg/dL (2.3-4.7); PROTHROMBIN TIME 14.5 SECONDS (9.7-12.8)
[2022-05-30 21:42] LABS: ALCOHOL(ethanol),MEDICAL < 10 mg/dL (0-10)
[2022-05-30] MEDS ORDERED: CRANBERRY500 M3 PO (21:48)
[2022-05-30] MEDS ORDERED: VITAMIN E 400 U4001 PO (21:49)
[2022-05-30] MEDS ORDERED: milk thistle PO (21:50)
[2022-05-30] MEDS ORDERED: VITAMIN C500 MG PO (21:50)
[2022-05-30] MEDS ORDERED: MELATONIN5 M1 SL (21:51)
[2022-05-30] MEDS ORDERED: XIFAXAN550 MG PO (21:51)
[2022-05-30] MEDS ORDERED: MACROBID 1100 MG/CAP PO (21:52)
[2022-05-30] MEDS ORDERED: IRON TABLETS325 MG PO (21:53)
[2022-05-30] MEDS ORDERED: MAG-OX 400400 MG/TAB PO (21:57)
[2022-05-30] MEDS ORDERED: CARAFATE 1GM1 G PO (21:58)
[2022-05-30] MEDS ORDERED: PROBIOTIC BLEN1 EACH PO (21:59)
[2022-05-30] MEDS ORDERED: JARDIANCE10 PO (22:00)
[2022-05-30 22:02] LABS: TSH w REFLEX 0.837 uIU/mL (0.350-4.940)
[2022-05-30] MEDS ORDERED: WELLBUTRIN XL150 MG PO (22:03)
[2022-05-30] MEDS ORDERED: LACTULOSE10 GM/153 PO (22:12)
[2022-05-31 00:31] VITALS: BP 140/51; PULSE 74; TEMP 97.5
[2022-05-31 07:18] LABS: EOS # 0.2 K/mm3 (0.0-0.7); EOS % 6.5 % (0.0-4.0); GRAN # 1.7 K/mm3 (1.4-6.5); GRAN % 55.3 % (42.2-75.2); HEMOGLOBIN 12.1 g/dl (12.5-16.0); LYMPH # 0.9 K/mm3 (1.2-3.4); LYMPH % 27.5 % (20.0-51.0); MEAN CELL VOLUME 102 fl (80.0-100.0); MEAN CORPUSCULAR HEMOGLOBIN 35 pg (27-31); MEAN CORPUSCULAR HGB CONC 34 g/dl (33.0-37.0); MEAN PLATELET VOLUME 11.5 fl (7.4-10.4); MONO # 0.3 K/mm3 (0.1-0.6); MONO % 9.4 % (1.7-9.3); PLATELET COUNT 63 K/mm3 (130-400); RED BLOOD COUNT 3.49 M/mm3 (4.10-5.30)
[2022-05-31 07:24] LABS: ALBUMIN 2.6 gm/dL (3.4-4.8); CALCIUM 9.1 mg/dL (8.4-10.2); CREATININE, serum 0.79 mg/dL (0.57-1.11); POTASSIUM 3.7 mmol/L (3.5-4.5); TOTAL PROTEIN 5.7 gm/dL (6.2-8.1)
[2022-05-31 07:25] LABS: HEMATOCRIT 35.5 % (37.0-47.0)
[2022-05-31 07:29] VITALS: BP 151/57; PULSE 90; TEMP 97.6
[2022-05-31 07:39] LABS: BILIRUBIN,TOTAL 2.6 mg/dL (0.2-1.2)
[2022-05-31 12:14] VITALS: BP 144/58; PULSE 92; TEMP 97.8
--- NOTE | 2022-05-31 12:50 | NUR ---
Chaplain renee and offered support with patient.
--- NOTE | 2022-05-31 15:13 | NUR ---
SW met patient to complete intake. Patient provides she lives in [facility] with her spouse Guanakito [phone]. Patient utilizes a walker, is independent with ADL's, and she does not obtain HH services at this time. PCP is Dr. Osborne, and pharmacy is [facility]. DPOA/HC is spouse. Patient plans to return to her home upon DC. SW will continue to follow. DC plan: home
[2022-05-31 15:50] VITALS: BP 123/35; PULSE 81; TEMP 98.1
[2022-05-31 19:55] VITALS: BP 127/44; PULSE 81; TEMP 98.5
--- NOTE | 2022-05-31 20:30 | NUR ---
Pt lying down. A&O x4. Requests assistance to use the bathroom. Pt is able to transfer from the bed to the bathroom without difficulty using her walker and gait belt. Pt states feeling good at this moment. No needs or concerns were expressed. LAC INT CDI. Generalized sweeling is noticed during shift assessment. Fall risk precautions in place. Call light within reach.
[2022-06-01 00:36] VITALS: BP 118/48; PULSE 88; TEMP 97.5
[2022-06-01 04:07] VITALS: BP 114/61; PULSE 89; TEMP 98
[2022-06-01 06:43] LABS: BASO % 0.9 % (0.0-2.0); EOS # 0.2 K/mm3 (0.0-0.7); EOS % 6.1 % (0.0-4.0); GRAN # 2.1 K/mm3 (1.4-6.5); GRAN % 60.5 % (42.2-75.2); HEMOGLOBIN 12.2 g/dl (12.5-16.0); LYMPH # 0.8 K/mm3 (1.2-3.4); LYMPH % 22.6 % (20.0-51.0); MEAN CELL VOLUME 103 fl (80.0-100.0); MEAN CORPUSCULAR HEMOGLOBIN 34 pg (27-31); MEAN CORPUSCULAR HGB CONC 33 g/dl (33.0-37.0); MEAN PLATELET VOLUME 11.6 fl (7.4-10.4); MONO # 0.3 K/mm3 (0.1-0.6); MONO % 9.9 % (1.7-9.3); PLATELET COUNT 63 K/mm3 (130-400); RED BLOOD COUNT 3.58 M/mm3 (4.10-5.30); REDCELL DISTRIBUTION WIDTH-CV 16.8 % (11.5-14.5)
[2022-06-01 06:59] LABS: ALBUMIN 2.7 gm/dL (3.4-4.8); BILIRUBIN,TOTAL 1.9 mg/dL (0.2-1.2); CALCIUM 8.8 mg/dL (8.4-10.2); CREATININE, serum 0.8 mg/dL (0.57-1.11); MAGNESIUM 1.9 mg/dL (1.6-2.6); POTASSIUM 3.9 mmol/L (3.5-4.5); TOTAL PROTEIN 6.3 gm/dL (6.2-8.1)
--- NOTE | 2022-06-01 07:00 | NUR ---
bedside shift report received from FORD recinos
[2022-06-01 07:30] VITALS: BP 139/63; PULSE 77; TEMP 97.8
--- NOTE | 2022-06-01 07:30 | NUR ---
resting in bed, will order breakfast soon
--- NOTE | 2022-06-01 08:43 | NUR ---
up to bathroom and then assisted out of bathroom and into recliner, full assessment completed, see interventions for further info
[2022-06-01] MEDS ORDERED: ENULOSE10 GM/15 M PO (09:05)
[2022-06-01] MEDS ORDERED: CEFTIN500 MG PO ×2 (09:06)
--- NOTE | 2022-06-01 09:13 | NUR ---
Dr Acevedo in to see patient, will plan discharge later today
--- NOTE | 2022-06-01 10:06 | NUR ---
physical therapy in to work with patient, ambulated out and into the mei
--- NOTE | 2022-06-01 10:42 | NUR ---
sitting up on side of bed and reviewing menu for lunch
--- NOTE | 2022-06-01 13:07 | NUR ---
discharge instructions given to patient, verbalizes understanding after reviewing antibiotic to take and the change to the lactulose being three times a day and not twice, also reviewed needing to call Dr for follow up appointment and to get lab work done on
--- NOTE | 2022-06-01 13:08 | NUR ---
discharged per WC
[2022-06-01] MEDS ORDERED: MONUROL 3 GM3 G/PKT PO (14:16)
== END 2022-06-01 13:08 | disposition home or self-care (01) | DRG 871 ==
LOC: COL.ER 16:35 → MEDICAL 20:36
PROVIDERS: Emergency Medicine; Nurse Practitioner Family; ADMIT Internal Medicine
DX: A41.89 Other specified sepsis (principal); G93.41 Metabolic encephalopathy; N39.0 Urinary tract infection, site not specified; J96.11 Chronic respiratory failure with hypoxia; D61.818 Other pancytopenia; E72.4 Disorders of ornithine metabolism; Z68.42 Body mass index [BMI] 45.0-49.9, adult; J44.9 Chronic obstructive pulmonary disease, unspecified; F03.90 Unspecified dementia, unspecified severity, without behavioral disturbance, psychotic disturbance, mood disturbance, and anxiety; G47.33 Obstructive sleep apnea (adult) (pediatric); K70.30 Alcoholic cirrhosis of liver without ascites; B96.89 Other specified bacterial agents as the cause of diseases classified elsewhere; D64.9 Anemia, unspecified; Z53.29 Procedure and treatment not carried out because of patient's decision for other reasons; D69.6 Thrombocytopenia, unspecified; F32.A Depression, unspecified; K76.82 Hepatic encephalopathy; E66.01 Morbid (severe) obesity due to excess calories; Z86.16 Personal history of COVID-19; Z99.81 Dependence on supplemental oxygen; Z87.891 Personal history of nicotine dependence; Z90.89 Acquired absence of other organs; Z90.710 Acquired absence of both cervix and uterus; Z88.8 Allergy status to other drugs, medicaments and biological substances; Z91.048 Other nonmedicinal substance allergy status; Z87.442 Personal history of urinary calculi
CPT/HCPCS: J0692; J0696; J7040

== ENCOUNTER 2022-09-10 10:51 | Inpatient (IN) | payer MEDICARE, OTHER ==
[~2022-09-10] VITALS: Ht 157.5 cm; Wt 119.4 kg
[~2022-09-10 10:51] MED LIST changes: +CARAFATE 1GM1 G PO; +CEFTIN500 MG PO; +CRANBERRY500 M3 PO; +ENULOSE10 GM/15 M PO; +IRON TABLETS325 MG PO; +JARDIANCE10 PO; +MACROBID 1100 MG/CAP PO; +MAG-OX 400400 MG/TAB PO; +MELATONIN5 M1 SL; +MONUROL 3 GM3 G/PKT PO; +VITAMIN C500 MG PO; +VITAMIN E 400 U4001 PO; +milk thistle PO
[2022-09-10 11:35] LABS: BASO # 0.1 K/mm3 (0.0-0.2); BASO % 0.6 % (0.0-2.0); EOS % 0.5 % (0.0-4.0); GRAN # 7.4 K/mm3 (1.4-6.5); GRAN % 86.2 % (42.2-75.2); HEMATOCRIT 41.4 % (37.0-47.0); HEMOGLOBIN 14.6 g/dl (12.5-16.0); LYMPH # 0.6 K/mm3 (1.2-3.4); LYMPH % 7.5 % (20.0-51.0); MEAN CELL VOLUME 102 fl (80.0-100.0); MEAN CORPUSCULAR HEMOGLOBIN 36 pg (27-31); MEAN CORPUSCULAR HGB CONC 35 g/dl (33.0-37.0); MEAN PLATELET VOLUME 11.5 fl (7.4-10.4); MONO # 0.4 K/mm3 (0.1-0.6); PLATELET COUNT 79 K/mm3 (130-400); RED BLOOD COUNT 4.07 M/mm3 (4.10-5.30); REDCELL DISTRIBUTION WIDTH-CV 14.4 % (11.5-14.5)
[2022-09-10 11:44] LABS: INR 1.4 (0.8-3.0); PROTHROMBIN TIME 16.3 SECONDS (9.7-12.8)
[2022-09-10 11:47] LABS: PARTIAL THROMBOPLASTIN TIME 31.7 SECONDS (26.0-37.0)
[2022-09-10 11:53] LABS: BILIRUBIN,TOTAL 4.5 mg/dL (0.2-1.2); CALCIUM 9.5 mg/dL (8.4-10.2); CREATININE, serum 1.39 mg/dL (0.57-1.11); POTASSIUM 4.6 mmol/L (3.5-4.5); TOTAL PROTEIN 7.6 gm/dL (6.2-8.1)
[2022-09-10 11:57] LABS: COLLECTION METHOD CLEAN CATCH
[2022-09-10 12:08] LABS: MUCOUS Present (NOT PRESENT); URINE BACTERIA None Seen /hpf (NONE SEEN); URINE RBC 20-50 /hpf (0-2)
[2022-09-10 12:11] LABS: URINE APPEARANCE Clear (CLEAR/HAZY); URINE BLOOD 2+ (NEGATIVE); URINE COLOR Yellow (YELLOW); URINE GLUCOSE Negative (NEGATIVE); URINE KETONE Negative (NEGATIVE); URINE NITRATE Negative (NEGATIVE); URINE PROTEIN(semi-quant) Negative (NEGATIVE); URINE UROBILINOGEN 0.2 E.U/dL (0.2-1.0)
[2022-09-10] MEDS ORDERED: LACTULOSE10 GM/153 PO (16:41)
[2022-09-10] MEDS ORDERED: ULTRAM 50MG TAB50 MG PO (16:42)
[2022-09-10] MEDS ORDERED: ZANAFLEX CAPSULE4 MG PO (16:44)
[2022-09-10] MEDS ORDERED: NAMENDA 10MG TA10 MG PO (16:56)
[2022-09-10] MEDS ORDERED: ZOFRAN ODT4 MG PO (16:59)
[2022-09-10] MEDS ORDERED: ALDACTONE 100M100 MG PO (17:02)
--- NOTE | 2022-09-10 19:29 | NUR ---
Pt arrived to room 311, she is A/O x4. Her breathing is even and unlabored on 3L O2 via NC. Pt denies any SOB. Some epigastric pain reported, no N/V at this time. She reports this pain does not worsen with eating and drinking. Ate dinner without any issues. BLE warm to touch, edema, and redness present. Pt appears to prefer to sit on side of bed with legs dangling. POC discussed with patient who verbalizes understanding. No needs at this time. Call light within reach.
[2022-09-10 19:47] VITALS: BP 136/54; PULSE 96; TEMP 98.2
[2022-09-11] VITALS (11 sets, daily range): BP systolic 92–147; BP diastolic 31–55; PULSE 72–108; TEMP 97.5–98.6
[2022-09-11 07:36] LABS: BASO % 0.7 % (0.0-2.0); EOS # 0.2 K/mm3 (0.0-0.7); EOS % 3.6 % (0.0-4.0); GRAN % 71.9 % (42.2-75.2); HEMATOCRIT 40.8 % (37.0-47.0); HEMOGLOBIN 14.2 g/dl (12.5-16.0); LYMPH # 0.8 K/mm3 (1.2-3.4); LYMPH % 14.4 % (20.0-51.0); MEAN CELL VOLUME 103 fl (80.0-100.0); MEAN CORPUSCULAR HEMOGLOBIN 36 pg (27-31); MEAN CORPUSCULAR HGB CONC 35 g/dl (33.0-37.0); MEAN PLATELET VOLUME 11.2 fl (7.4-10.4); MONO # 0.5 K/mm3 (0.1-0.6); PLATELET COUNT 69 K/mm3 (130-400); RED BLOOD COUNT 3.95 M/mm3 (4.10-5.30); REDCELL DISTRIBUTION WIDTH-CV 14.4 % (11.5-14.5)
[2022-09-11 07:38] LABS: INR 1.4 (0.8-3.0); PROTHROMBIN TIME 15.7 SECONDS (9.7-12.8)
[2022-09-11 07:53] LABS: BILIRUBIN,TOTAL 3.8 mg/dL (0.2-1.2); CALCIUM 9.2 mg/dL (8.4-10.2); CREATININE, serum 1.12 mg/dL (0.57-1.11); MAGNESIUM 2.4 mg/dL (1.6-2.6); POTASSIUM 4.5 mmol/L (3.5-4.5); TOTAL PROTEIN 7.4 gm/dL (6.2-8.1)
--- NOTE | 2022-09-11 07:53 | NUR ---
Patient is on the side of the chair, alert and oriented x 4, asked about the time of procedure, explained POC. Assisted to the restroom. Receiving NS 75ML per hr. 3L O2 NC. No further needs at this time. Call light within reach.
--- NOTE | 2022-09-11 08:52 | NUR ---
Patient is taken by bed for EGD
--- NOTE | 2022-09-11 10:43 | NUR ---
Patient came back from the procedure, complains of headache, PRN provided. Continues with 1/2 NS at 75 ml per hr. Continue monitoring.
--- NOTE | 2022-09-11 11:54 | NUR ---
SW met with the patient to discuss discharge plan. The patient lives in [place]. Her , Guanakito, is currently residing at [facility] for a skilled stay. She states that her grandson, Juwan, who is 9 years old, has been staying with her, to keep her company. Juwan lives with his mother (the patient's daughter, Ana Rosa) in [place]. The patient reports independence with ADLs and has a walker and home oxygen from [facility]. The patient's PCP is Dr. Franck Andrew and [facility]. The patient's DPOA-HC is in EMR and it designates her . The alternate is her son, Edmar (ph#[phone], [place]). The patient plans to return home upon discharge. PT/OT have been ordered. *Discharge plan: home. Will await PT/OT evals*
[2022-09-12 00:46] VITALS: BP 138/46; PULSE 73; TEMP 97.8
[2022-09-12 03:19] VITALS: BP 127/46; PULSE 93; TEMP 97.9
--- NOTE | 2022-09-12 05:00 | NUR ---
ASSESSMENT COMPLETE FOR PRIMARY CLASS TEACHER. PT COMPLAINED OF A HEADACHE AND LEFT LOWER EXTRIMITY PAIN. PT GIVEN ULTRAM FOR PAIN. PT FELT THE ULTRAM WAS EFFECTIVE FOR THE HEADACHE, NOT SO MUCH FOR THE LLE PAIN. PT AND FAMILY WANTED TO KNOW WHAT WAS NEEDED TO GET PT ON THE LIVER TRANSPLANT LIST. I ENCOURAGE THE PT AND FAMILY TO TALK TO THE HOSPITALIST DURING ROUNDS. PT SUCCESSFULLY TOOK A SHOWER WITH NO ISSUES AND WOULD LIKE TO ADVANCE HER DIET FROM CLEAR LIQUIDS. PT EXPRESSED NO ADDITIONAL NEEDS AT THIS TIME. CALL LIGHT WITHIN REACH.
[2022-09-12 06:40] LABS: BASO % 0.4 % (0.0-2.0); EOS # 0.3 K/mm3 (0.0-0.7); EOS % 3.9 % (0.0-4.0); GRAN # 6.5 K/mm3 (1.4-6.5); GRAN % 81.2 % (42.2-75.2); HEMATOCRIT 38.1 % (37.0-47.0); HEMOGLOBIN 13.1 g/dl (12.5-16.0); LYMPH # 0.5 K/mm3 (1.2-3.4); LYMPH % 6.6 % (20.0-51.0); MEAN CELL VOLUME 104 fl (80.0-100.0); MEAN CORPUSCULAR HEMOGLOBIN 36 pg (27-31); MEAN CORPUSCULAR HGB CONC 34 g/dl (33.0-37.0); MEAN PLATELET VOLUME 10.7 fl (7.4-10.4); MONO # 0.6 K/mm3 (0.1-0.6); MONO % 7.6 % (1.7-9.3); PLATELET COUNT 60 K/mm3 (130-400); RED BLOOD COUNT 3.65 M/mm3 (4.10-5.30); REDCELL DISTRIBUTION WIDTH-CV 14.2 % (11.5-14.5)
[2022-09-12 06:48] LABS: INR 1.4 (0.8-3.0); PROTHROMBIN TIME 16.5 SECONDS (9.7-12.8)
[2022-09-12 06:55] LABS: ALBUMIN 2.7 gm/dL (3.4-4.8); BILIRUBIN,TOTAL 3.1 mg/dL (0.2-1.2); CALCIUM 8.5 mg/dL (8.4-10.2); CREATININE, serum 0.84 mg/dL (0.57-1.11); POTASSIUM 5.2 mmol/L (3.5-4.5); TOTAL PROTEIN 6.4 gm/dL (6.2-8.1)
[2022-09-12 08:00] VITALS: BP 135/65; PULSE 100; TEMP 98.2
--- NOTE | 2022-09-12 09:47 | NUR ---
Initial visit; Patient thanked School Coordinator for looking in on her and offering comfort and God's blessings. School Coordinator will keep Clare in her prayers.
[2022-09-12] MEDS ORDERED: XIFAXAN550 MG PO (09:58)
[2022-09-12] MEDS ORDERED: ELIQUIS 5MG PO ×2 (10:00)
[2022-09-12] MEDS ORDERED: PROTONIX 40MG T40 MG PO (10:01)
[2022-09-12 12:00] VITALS: BP 116/41; PULSE 71; TEMP 97.9
--- NOTE | 2022-09-12 14:31 | NUR ---
PT/OT recommend home. The patient is to discharge back home today, 09/12. No additional needs at this time.
[2022-09-13] MEDS ORDERED: COUMADIN 5MG5 MG/TAB PO (15:11)
== END 2022-09-12 16:00 | disposition home or self-care (01) | DRG 871 ==
LOC: COL.ER 10:51 → MEDICAL 14:01
PROVIDERS: Emergency Medicine; Internal Medicine Gastroenterology; ADMIT Internal Medicine
PROC: 0DB68ZX Excision of Stomach, Via Natural or Artificial Opening Endoscopic, Diagnostic (ICD-10-PCS; 2022-09-11)
PROC: 0DB98ZX Excision of Duodenum, Via Natural or Artificial Opening Endoscopic, Diagnostic (ICD-10-PCS; principal; 2022-09-11 15:00)
DX: A41.9 Sepsis, unspecified organism (principal); I81 Portal vein thrombosis; K83.1 Obstruction of bile duct; N39.0 Urinary tract infection, site not specified; J96.11 Chronic respiratory failure with hypoxia; K76.6 Portal hypertension; N17.9 Acute kidney failure, unspecified; E87.20 Acidosis, unspecified; Z68.42 Body mass index [BMI] 45.0-49.9, adult; K70.30 Alcoholic cirrhosis of liver without ascites; G47.33 Obstructive sleep apnea (adult) (pediatric); E66.01 Morbid (severe) obesity due to excess calories; F32.A Depression, unspecified; F03.90 Unspecified dementia, unspecified severity, without behavioral disturbance, psychotic disturbance, mood disturbance, and anxiety; J44.9 Chronic obstructive pulmonary disease, unspecified; K75.81 Nonalcoholic steatohepatitis (NASH); D64.9 Anemia, unspecified; D69.6 Thrombocytopenia, unspecified; K29.70 Gastritis, unspecified, without bleeding; K26.7 Chronic duodenal ulcer without hemorrhage or perforation; K29.80 Duodenitis without bleeding; K31.89 Other diseases of stomach and duodenum; Z86.16 Personal history of COVID-19; Z87.01 Personal history of pneumonia (recurrent); Z91.048 Other nonmedicinal substance allergy status; Z87.442 Personal history of urinary calculi; Z90.710 Acquired absence of both cervix and uterus; Z90.89 Acquired absence of other organs; Z99.81 Dependence on supplemental oxygen; Z87.891 Personal history of nicotine dependence
CPT/HCPCS: J0696; J1644; J2405; J2704; J2765; J3010; J7050; Q9967

== ENCOUNTER → 2022-10-16 | Outpatient (CLI) | payer MEDICARE, OTHER ==
[~2022-10-16] MED LIST changes: +ALDACTONE 100M100 MG PO; +COUMADIN 5MG5 MG/TAB PO; +ELIQUIS 5MG PO; +NAMENDA 10MG TA10 MG PO; +ULTRAM 50MG TAB50 MG PO; +ZANAFLEX CAPSULE4 MG PO
== END ==
LOC: COL.RAD 10:15
DX: K74.60 Unspecified cirrhosis of liver (principal); K76.82 Hepatic encephalopathy; I81 Portal vein thrombosis; K76.6 Portal hypertension

== ENCOUNTER 2022-11-10 11:30 | Inpatient (IN) | payer MEDICARE, OTHER ==
[~2022-11-10] VITALS: Ht 165.1 cm; Wt 116.4 kg
[2022-11-10] VITALS (454 sets, daily range): BP systolic 109–126; BP diastolic 52–69; PULSE 84–110; TEMP 97.6–98.9; O2SAT 87–100
[2022-11-10 12:29] LABS: INR 1.2 (0.8-3.0); PROTHROMBIN TIME 14.1 SECONDS (9.7-12.8)
[2022-11-10 12:34] LABS: LACTIC ACID 2.8 mmol/L (0.5-2.0)
[2022-11-10 12:38] LABS: ALBUMIN 2.9 gm/dL (3.4-4.8); CALCIUM 9.1 mg/dL (8.4-10.2); CREATININE, serum 1.17 mg/dL (0.57-1.11); POTASSIUM 4.6 mmol/L (3.5-4.5); TOTAL PROTEIN 6.9 gm/dL (6.2-8.1)
[2022-11-10 12:39] LABS: BASO % 0.9 % (0.0-2.0); EOS # 0.1 K/mm3 (0.0-0.7); EOS % 2.1 % (0.0-4.0); GRAN # 2.3 K/mm3 (1.4-6.5); GRAN % 71.2 % (42.2-75.2); HEMATOCRIT 38.6 % (37.0-47.0); HEMOGLOBIN 13.1 g/dl (12.5-16.0); LYMPH # 0.6 K/mm3 (1.2-3.4); LYMPH % 16.9 % (20.0-51.0); MEAN CELL VOLUME 108 fl (80.0-100.0); MEAN CORPUSCULAR HEMOGLOBIN 37 pg (27-31); MEAN CORPUSCULAR HGB CONC 34 g/dl (33.0-37.0); MEAN PLATELET VOLUME 11.4 fl (7.4-10.4); MONO # 0.3 K/mm3 (0.1-0.6); MONO % 8.6 % (1.7-9.3); PLATELET COUNT 78 K/mm3 (130-400); RED BLOOD COUNT 3.56 M/mm3 (4.10-5.30); REDCELL DISTRIBUTION WIDTH-CV 14.1 % (11.5-14.5)
[2022-11-10 12:43] LABS: TROPONIN-I 0.012 ng/mL (0.00-0.033)
[2022-11-10 12:50] LABS: COLLECTION METHOD CATHETER
[2022-11-10 13:03] LABS: BILIRUBIN,TOTAL 2.5 mg/dL (0.2-1.2)
[2022-11-10 13:04] LABS: URINE COLOR Yellow (YELLOW)
[2022-11-10 13:05] LABS: URINE APPEARANCE Cloudy (CLEAR/HAZY); URINE BLOOD TRACE-INTACT (NEGATIVE); URINE GLUCOSE Negative (NEGATIVE); URINE KETONE Negative (NEGATIVE); URINE NITRATE Negative (NEGATIVE); URINE PROTEIN(semi-quant) TRACE (NEGATIVE)
[2022-11-10 13:06] LABS: SQUAMOUS EPITHELIAL 0-2 /hpf (0-10); URINE BACTERIA Rare /hpf (NONE SEEN)
[2022-11-10 13:40] LABS: ARTERIAL BLD GAS O2 SATURATION 91.1 % (92-100); ARTERIAL BLD GAS TCO2 CT 28.1; ARTERIAL BLOOD GAS BASE EXCESS 3.2 (-2-2); ARTERIAL BLOOD GAS HCO3 26.9 meq/L (22-26); ARTERIAL BLOOD GAS PO2 59.9 mmHg (80-100); ARTERIAL BLOOD GAS pH 7.47 (7.35-7.45)
--- NOTE | 2022-11-10 14:40 | NUR ---
Arrived to the icu from ED. Patient alert with eyes open, but does not follow commands. Patient able to move all extremities without difficulty. Tess has an NG tube. Patient observed reaching up towards tube multiple times an attempt to remove the tube. Patient has an order for soft wrist restraints from medical line protection for this reason. Attached to all monitors. Will continue to monitor.
[2022-11-10] MEDS ORDERED: PLAVIX 75MG TAB75 MG PO (16:09)
[2022-11-10] MEDS ORDERED: WEGOVY0.25 MG/0. SQ (16:10)
[2022-11-10] MEDS ORDERED: DEMADEX 20MG20 M1 PO (16:11)
--- NOTE | 2022-11-10 17:45 | NUR ---
Attempted to bring patient to CT, however informed by the residential service technician that CT is unavailable at this time and will notify this nurse when available.
[2022-11-11] VITALS (996 sets, daily range): BP systolic 110–138; BP diastolic 48–84; PULSE 79–98; TEMP 98–98.9; O2SAT 83–100
[2022-11-11 05:02] LABS: BASO % 0.9 % (0.0-2.0); EOS # 0.1 K/mm3 (0.0-0.7); EOS % 2.4 % (0.0-4.0); GRAN # 3.3 K/mm3 (1.4-6.5); GRAN % 73.5 % (42.2-75.2); HEMOGLOBIN 12.4 g/dl (12.5-16.0); LYMPH # 0.5 K/mm3 (1.2-3.4); LYMPH % 10.8 % (20.0-51.0); MEAN CELL VOLUME 108 fl (80.0-100.0); MEAN CORPUSCULAR HEMOGLOBIN 37 pg (27-31); MEAN CORPUSCULAR HGB CONC 34 g/dl (33.0-37.0); MEAN PLATELET VOLUME 10.9 fl (7.4-10.4); MONO # 0.6 K/mm3 (0.1-0.6); MONO % 12.4 % (1.7-9.3); PLATELET COUNT 80 K/mm3 (130-400); RED BLOOD COUNT 3.36 M/mm3 (4.10-5.30); REDCELL DISTRIBUTION WIDTH-CV 14.3 % (11.5-14.5)
[2022-11-11 05:07] LABS: HEMATOCRIT 36.3 % (37.0-47.0)
[2022-11-11 05:18] LABS: ALBUMIN 2.6 gm/dL (3.4-4.8); BILIRUBIN,TOTAL 3.5 mg/dL (0.2-1.2); CALCIUM 8.9 mg/dL (8.4-10.2); CREATININE, serum 1.17 mg/dL (0.57-1.11); PHOSPHOROUS 3.5 mg/dL (2.3-4.7); POTASSIUM 4.1 mmol/L (3.5-4.5); TOTAL PROTEIN 5.9 gm/dL (6.2-8.1)
--- NOTE | 2022-11-11 13:00 | NUR ---
Patient awake and resting in bed. Making eye contact and able to have a brief discussion with this nurse. Restraints discontinued at this time as patient is being cooperative and oriented to situation. Disussed the purpose of the NG tube to deliver medication. Patient states she understands the purpose and will not attempt to pull at the tube. Will continue to monitor.
--- NOTE | 2022-11-11 13:55 | NUR ---
wet room worker contacted son, Mik #[phone] to assess for discharge planning. Mik states that patient resides alone and her daughter, Lisa #[phone] checks on her daily. Mik states that patient has early stages of dementia and that the patient and family were confused on dosing of home medication creating high pnemonia levels. Patient's primary care provider is Dr Andrew. Mik states that patient now has Medicare D and that they have switched patient's pharmacy to [facility]. Mik states that patient owns a piece of property that prohibits medicaid at this time. Worker provides information on [place] [facility] and son wishes to see how patient responds to treatment and is flying into town tomorrow for patient's spouse's . Worker left a message with Dr Andrew's social services manager to collaborate on discharge planning. Worker requested Mik provide us with the most recent durable power of burglary investigator as Mik stated they completed another form 6 months ago, appointing Mik.
--- NOTE | 2022-11-11 15:27 | NUR ---
Patient able to chew ice chips and swallow sips of water without difficulty. NG tube discontinued at this time per GI recommendations.
--- NOTE | 2022-11-11 18:15 | NUR ---
Transfered up to medical floor. Alert and paritally oriented and in no distress upon arrival. Receiving RN notified of patient's arrival.
--- NOTE | 2022-11-11 19:18 | NUR ---
PT ARRIVED TO MEDICAL FLOOR ROOM 357 APPROX 1840. PT IS A&O X2. PT STATED SHE IS NOT IN PAIN, REQUESTED ICE CHIPS AND FOOD. PT OFFERED SANDWHICH KITCHEN IS CLOSED. PT IS ON 2L O2 NC. VITALS STABLE. REMAINS ON TELE SINUS RYTHMN. PT'S SON IS AT THE BEDSIDE. PT GIVEN SCHEDULED ZOSYN AND LACTULOSE.
--- NOTE | 2022-11-12 02:25 | NUR ---
Received report from day shift nurse. Pt is lying in bed with call light within reach. Pt has family bedside.
[2022-11-12 03:41] VITALS: BP 125/59; PULSE 84; TEMP 97.5
--- NOTE | 2022-11-12 06:53 | NUR ---
Primary Nurse asked this SUPERVISOR MATRIX to pass morning lactulose for pt.
[2022-11-12 07:25] LABS: ALBUMIN 2.5 gm/dL (3.4-4.8); CALCIUM 8.8 mg/dL (8.4-10.2); CREATININE, serum 1.11 mg/dL (0.57-1.11); POTASSIUM 3.8 mmol/L (3.5-4.5)
--- NOTE | 2022-11-12 07:35 | NUR ---
Pt is partially oriented and follows commands. Pt knows her name and , the year it is now, and town she was at. Pt stated she was having chest pain at the beginning of the shift. Pt was not able to score the pain or describe the pain. Notified hospitalist and did EKG, troponin lab, tylenol, and chest xray. Pt still complained of chest pain later and notified hospitalist again and gave morphine. After morphine was given pt complained of a migraine and pt stated she does get migraines often. Notified hospitalist. Pt was having some difficulty breathing but the SpO2 was stating in the 90's on room air and had ABD breathing and SOA. Notified hospitalist and then gave pt 2 L NC and that helped decrease the ABD breathing and SOA. Pt has a open wound on her chest that pt keeps scratching and nurse placed a bandaid over it to help prevent it from getting bigger. It was 1cm x 0.5cm. Pt has been drinking a lot throughout the night about 3,000 mL and ate dinner and some snacks. Pt keeps asking for more to drink and eat and nurse tries to spread out when drinks and snacks are given because she will drink a cup of juice in about 30 seconds and want more and not be good at drinking slowly. Tried to educate pt to take a break and drink slower. Notified hospitalist about her drinking a lot of fluids. Pt is able to eat and drink on her own without coughing and has been alert most of the night and had pain most of the night. Pt went to sleep around 0300 and is able to wake up but just takes a moment to wake up and talk.
[2022-11-12 08:40] VITALS: BP 149/52; PULSE 71; TEMP 97.9
--- NOTE | 2022-11-12 11:15 | NUR ---
Orders received from provider to discontinue sanchez cath and rectal tube now that pt is discharging from hospital. Pt sitting in recliner watching tv upon this nurse's entry to room. Pt is alert and oriented to self, date, and location. Pt assisted to bed x1 assist. Pt then put into right prone position along w/ assistance from MegRN and KATIUSKA Torres. Approx 55cc of H2O removed from rectal tube balloon. Rectal tube then removed w/o difficulty. Pt then positioned supine with bilateral legs relaxed to the side. Approx 10cc of H20 removed from sanchez cath balloon. Sanchez catheter removed w/o difficulty. Incontinent and pericare provided. Brief then applied to pt. Pt returned to bed in supine position w/ HOB elevated to approx 45 degrees. After activity, pt is SOA. O2 is on @ 2L via NC. Deep breathing exercise performed w/ pt. Visitors are outside room for pt. Pt notified and would like them to enter room. Pt has no complaints or concerns. Call light in reach.
[2022-11-12] MEDS ORDERED: LACTULOSE10 GM/153 PO (11:30)
--- NOTE | 2022-11-12 12:07 | NUR ---
Pt sitting up in bed with daughter in law by bedside. Pt notified of discharge instructions completed and new order for oral abx x1 dose prior to leaving. Pt tolerates abx well. PIV discontinued and pressure drsg applied. Telemetry discontinued. Pt is awaiting son to return from obtaining her clothes from home then will be leaving POV. This nurse will provide discharge education once son returns to bedside to assist pt.
--- NOTE | 2022-11-12 14:32 | NUR ---
The clinical team is ready to discharge the patient and orders were finalized. LING met with the patient and her gmshthjj-xi-ayo to review discharge plan. The patient is wanting to return home. She states that her daughter comes and check on her after she gets off work and her grandson stays with her. The ocwwbenx-ti-yri confirmed this. SW discussed getting home health services set up and discussed their benefits. The patient and her nmgqxair-wg-sex are interested in this. The patient's ffksjekz-ck-kfe was also interested in a list of private duty agencies, that could provide some service delivery supervisor services. LING provided her with that list. The patient shares that she has had home health in the past, but could not recall which agency she had. Per the patient's notes, she has been set up with [facility] in the past. LING informed the patient of this. The patient is agreeable with using [facility] again. LING contacted and faxed a referral to Cheng at [facility]. Cheng reports that they are able to accept the patient. The patient is to discharge back home with family support today, 11/12, with home health services for intermediate/PT/OT from [facility]. LING notified and faxed orders to Cheng at [facility]. No additional needs at this time.
--- NOTE | 2022-11-12 15:10 | NUR ---
Pt and family are prepared for pt to discharge. Pt discharge education/instructions d/w family and pt. Questions regarding lactulose available forms d/t pt not liking oral solution, but tablets being expensive to purchase. This nurse consulted w/ pharmacy and confirmed these were the only routes available. Pt and family have opted to cont w/ lactulose oral solution. Education provided to pt and family the importance of compliance w/ lactulose. Pt and family demonstrate understanding. No further questions or concerns. Pt escorted out to POV via w/c @ approx 1500.
== END 2022-11-12 15:10 | disposition home health service (06) | DRG 871 ==
LOC: COL.ER 11:30 → ICU 13:35 → MEDICAL 11-11 19:33
PROVIDERS: Emergency Medicine; Physician Assistant; ADMIT Internal Medicine
DX: A41.9 Sepsis, unspecified organism (principal); G93.41 Metabolic encephalopathy; J96.21 Acute and chronic respiratory failure with hypoxia; K76.6 Portal hypertension; N39.0 Urinary tract infection, site not specified; E87.20 Acidosis, unspecified; Z68.41 Body mass index [BMI] 40.0-44.9, adult; R65.20 Severe sepsis without septic shock; K76.82 Hepatic encephalopathy; G47.33 Obstructive sleep apnea (adult) (pediatric); F32.A Depression, unspecified; F03.90 Unspecified dementia, unspecified severity, without behavioral disturbance, psychotic disturbance, mood disturbance, and anxiety; E66.01 Morbid (severe) obesity due to excess calories; J44.9 Chronic obstructive pulmonary disease, unspecified; K74.60 Unspecified cirrhosis of liver; K75.81 Nonalcoholic steatohepatitis (NASH); D69.6 Thrombocytopenia, unspecified; K26.9 Duodenal ulcer, unspecified as acute or chronic, without hemorrhage or perforation; B95.2 Enterococcus as the cause of diseases classified elsewhere; K59.00 Constipation, unspecified; Z91.048 Other nonmedicinal substance allergy status; Z87.442 Personal history of urinary calculi; Z90.89 Acquired absence of other organs; Z90.710 Acquired absence of both cervix and uterus; Z79.01 Long term (current) use of anticoagulants; Z87.891 Personal history of nicotine dependence
CPT/HCPCS: C9113; J0780; J2060; J2270; J2543; J7120; Q9967

== ENCOUNTER 2023-05-20 17:21 | Emergency (ER) | payer MEDICARE, OTHER ==
[~2023-05-20] VITALS: Ht 157.5 cm; Wt 97.3 kg
[~2023-05-20 17:21] MED LIST changes: +DESYREL 50MG50 MG PO; +DOXYCYCLINE 10100 MG PO; +MACRODANTIN100 PO; +PLAVIX 75MG TAB75 MG PO; +WEGOVY0.25 MG/0. SQ
[2023-05-20 17:38] VITALS: TEMP 98.1
[2023-05-20 18:53] LABS: BASO % 0.3 % (0.0-2.0); EOS # 0.1 K/mm3 (0.0-0.7); EOS % 3.5 % (0.0-4.0); GRAN # 1.8 K/mm3 (1.4-6.5); GRAN % 60.6 % (42.2-75.2); HEMOGLOBIN 10.8 g/dl (12.5-16.0); LYMPH # 0.7 K/mm3 (1.2-3.4); LYMPH % 22.8 % (20.0-51.0); MEAN CELL VOLUME 91 fl (80.0-100.0); MEAN CORPUSCULAR HEMOGLOBIN 29 pg (27-31); MEAN CORPUSCULAR HGB CONC 32 g/dl (33.0-37.0); MONO # 0.4 K/mm3 (0.1-0.6); MONO % 12.8 % (1.7-9.3); RED BLOOD COUNT 3.69 M/mm3 (4.10-5.30); REDCELL DISTRIBUTION WIDTH-CV 20.2 % (11.5-14.5)
[2023-05-20 18:55] LABS: HEMATOCRIT 33.5 % (37.0-47.0)
[2023-05-20 18:56] LABS: PLATELET COUNT 45 K/mm3 (130-400)
[2023-05-20 19:12] LABS: ALBUMIN 3.4 gm/dL (3.4-4.8); CALCIUM 9.6 mg/dL (8.4-10.2); CREATININE, serum 1.05 mg/dL (0.57-1.11); POTASSIUM 3.3 mmol/L (3.5-4.5); TOTAL PROTEIN 6.7 gm/dL (6.2-8.1)
[2023-05-20 19:18] LABS: TROPONIN-I 0.01 ng/mL (0.00-0.033)
[2023-05-20 21:36] VITALS: BP 107/64; PULSE 75
[2023-05-22] MEDS ORDERED: ULTRAM 50MG TAB50 MG PO (11:20)
== END 2023-05-20 21:56 | disposition home or self-care (01) ==
LOC: COL.ER 17:21
PROVIDERS: Emergency Medicine
DX: R19.7 Diarrhea, unspecified (principal); R10.84 Generalized abdominal pain; J44.9 Chronic obstructive pulmonary disease, unspecified; Z87.891 Personal history of nicotine dependence; Z99.81 Dependence on supplemental oxygen
CPT/HCPCS: J7030; Q9967

== ENCOUNTER 2023-09-17 15:53 | Emergency (ER) | payer MEDICARE, OTHER ==
[~2023-09-17] VITALS: Ht 157.5 cm; Wt 97.3 kg
[~2023-09-17 15:53] MED LIST changes: +BENADRYL25 M2 PO; +DEMADEX5 MG PO; +ENULOSE10 GM/151 PO; +NATURE'S BLEND100 M2 PO; +NIZORAL CREAM15 GM TP; +PROAMATINE 5MG T5 MG PO; +THIAMINE I200 MG/2 M IJ; +XIFAXAN200 MG PO; +ZYVOX 600MG600 MG PO
[2023-09-17 16:23] VITALS: TEMP 97.9
[2023-09-17 18:49] LABS: BASO % 0.9 % (0.0-2.0); EOS # 0.2 K/mm3 (0.0-0.7); EOS % 4.4 % (0.0-4.0); GRAN # 2.2 K/mm3 (1.4-6.5); GRAN % 65.3 % (42.2-75.2); LYMPH # 0.7 K/mm3 (1.2-3.4); LYMPH % 19.2 % (20.0-51.0); MEAN CELL VOLUME 103 fl (80.0-100.0); MEAN CORPUSCULAR HGB CONC 32 g/dl (33.0-37.0); MEAN PLATELET VOLUME 11.2 fl (7.4-10.4); MONO # 0.3 K/mm3 (0.1-0.6); MONO % 9.9 % (1.7-9.3); PLATELET COUNT 69 K/mm3 (130-400); RED BLOOD COUNT 2.61 M/mm3 (4.10-5.30)
[2023-09-17 18:52] LABS: HEMATOCRIT 26.9 % (37.0-47.0); HEMOGLOBIN 8.6 g/dl (12.5-16.0); MEAN CORPUSCULAR HEMOGLOBIN 33 pg (27-31)
[2023-09-17] MEDS ORDERED: Furosemide 40 MG/4 ML VIAL IV ONE (19:00)
[2023-09-17 19:05] LABS: ALBUMIN 2.7 gm/dL (3.4-4.8); BILIRUBIN,TOTAL 3.3 mg/dL (0.2-1.2); CALCIUM 8.8 mg/dL (8.4-10.2); CREATININE, serum 0.94 mg/dL (0.57-1.11); POTASSIUM 4.4 mmol/L (3.5-4.5); TOTAL PROTEIN 5.7 gm/dL (6.2-8.1)
[2023-09-17] MEDS ORDERED: LASIX 20MG TABL20 MG PO (21:32)
[2023-09-17 21:59] VITALS: BP 109/57; PULSE 80
== END 2023-09-17 21:59 | disposition home or self-care (01) ==
LOC: COL.ER 15:53
PROVIDERS: Personal Emergency Response Attendant
DX: R60.0 Localized edema (principal); E66.01 Morbid (severe) obesity due to excess calories; Z68.39 Body mass index [BMI] 39.0-39.9, adult
CPT/HCPCS: J1940

== ENCOUNTER 2023-10-28 01:34 | Inpatient (IN) | payer MEDICARE ==
[2023-10-28] VITALS (8 sets, daily range): BP systolic 82–107; BP diastolic 42–60; PULSE 98–111; TEMP 97.5–100.6
[~2023-10-28] VITALS: Ht 162.6 cm; Wt 114.9 kg
[~2023-10-28 01:34] MED LIST changes: +BENTYL 10MG10 MG/CAP PO; +BLUE-EMU LIDOC1 EACH TP; +DEMADEX10 MG PO; +LASIX 20MG TABL20 MG PO; +LASIX 40MG TABL40 MG PO
[2023-10-28] MEDS ORDERED: NS 1,000 ML IV ONE (01:45)
[2023-10-28 02:23] LABS: BASO % 0.3 % (0.0-2.0); EOS # 0.2 K/mm3 (0.0-0.7); EOS % 1.1 % (0.0-4.0); GRAN # 12.4 K/mm3 (1.4-6.5); GRAN % 87.2 % (42.2-75.2); HEMOGLOBIN 10.1 g/dl (12.5-16.0); LYMPH # 0.4 K/mm3 (1.2-3.4); LYMPH % 2.9 % (20.0-51.0); MEAN CELL VOLUME 104 fl (80.0-100.0); MEAN CORPUSCULAR HEMOGLOBIN 33 pg (27-31); MEAN CORPUSCULAR HGB CONC 32 g/dl (33.0-37.0); MEAN PLATELET VOLUME 10.7 fl (7.4-10.4); MONO # 1.1 K/mm3 (0.1-0.6); MONO % 7.9 % (1.7-9.3); PLATELET COUNT 95 K/mm3 (130-400); RED BLOOD COUNT 3.07 M/mm3 (4.10-5.30); REDCELL DISTRIBUTION WIDTH-CV 24.1 % (11.5-14.5)
[2023-10-28 02:33] LABS: COLLECTION METHOD CATHETER
[2023-10-28 02:46] LABS: ALBUMIN 2.6 g/dL (3.4-4.8); BILIRUBIN,TOTAL 6.3 mg/dL (0.2-1.2); POTASSIUM 4.2 mEq/L (3.5-4.5); TOTAL PROTEIN 5.8 g/dl (6.2-8.1)
[2023-10-28 02:57] LABS: URINE APPEARANCE CLOUDY (CLEAR/HAZY); URINE BLOOD NEGATIVE (NEGATIVE); URINE COLOR YELLOW (YELLOW); URINE GLUCOSE NEGATIVE (NEGATIVE); URINE KETONE NEGATIVE (NEGATIVE); URINE NITRATE NEGATIVE (NEGATIVE); URINE PROTEIN(semi-quant) NEGATIVE (NEGATIVE)
[2023-10-28 02:59] LABS: TROPONIN-I 0.08 ng/mL (0.00-0.033)
[2023-10-28] MEDS ORDERED: Nitrofurantoin (Mono/Macro) 100 MG CAP PO SCH (05:30)
--- NOTE | 2023-10-28 06:19 | NUR ---
PATIENT AXO X1 ONLY AND DOES NOT RESPOND TO QUESTIONS- INTAKE INCOMPLETE.
--- NOTE | 2023-10-28 06:24 | NUR ---
PATIENT ADMITTED TO ROOM 310 FROM ED. VS ARE 107/44BP, 98.7 TEMP, 111 PULSE AND 98 % ON 2L NC. RR 20. PATIENT RESPONDS TO VOICE BUT CANNOT ANSWER QUESTIONS OR FOLLOW COMMANDS. MED RED IS INCOMPLETE- WILL ADVISE DAYSHIFT TO CALL MED REC TECH. 16FR RUVALCABA DRAINING BLOOD TINGED URINE.
--- NOTE | 2023-10-28 07:50 | NUR ---
patient is lethargic and drowsy. patient is responsive to voice but unable to do commands. patient is yawning often and patient remains disoriented. patient has bilateral lower extremity pitting edema +4, redness and some weeping areas to her both lower legs. patient has a skin tear on her left antecubital area. patient has some excoriation to her pannus area and under breast. Patient has a umbilical hernia. patient has intermitten restless legs. sanchez catheter in place with blood tinged color, patient remains on 2L O2/NC. call light within reach. bed at lowest position. alarm on.
[2023-10-28] MEDS ORDERED: DAPTOmycin 400 MG in NS 8 ML IV SCH (08:00)
[2023-10-28] MEDS ORDERED: NS 1,000 ML IV SCH (10:15)
[2023-10-28] MEDS ORDERED: Linezolid 600 MG TAB PO SCH (10:30)
[2023-10-28] MEDS ORDERED: LINEZOLID 600 MG/300 ML IV SCH (10:30)
[2023-10-28] MEDS ORDERED: Meropenem 500 MG in Water For Injection,Sterile 10 ML IV SCH (10:30)
[2023-10-28] MEDS ORDERED: Pantoprazole 40 MG in NS 10 ML IV SCH (10:30)
[2023-10-28 10:59] LABS: PROTHROMBIN TIME 21.6 SECONDS (9.7-12.8)
[2023-10-28 12:10] LABS: ARTERIAL BLD GAS O2 SATURATION 97.3 % (92-100); ARTERIAL BLD GAS TCO2 CT 29.8; ARTERIAL BLOOD GAS BASE EXCESS 5.5 (-2-2); ARTERIAL BLOOD GAS HCO3 28.7 meq/L (22-26); ARTERIAL BLOOD GAS PO2 89.7 mmHg (80-100); ARTERIAL BLOOD GAS pH 7.52 (7.35-7.45)
[2023-10-28] MEDS ORDERED: ARICEPT10 MG PO (13:35)
[2023-10-28] MEDS ORDERED: BENTYL 10MG10 MG/CAP PO (13:38)
[2023-10-28] MEDS ORDERED: PROTONIX 40MG T40 MG PO (13:40)
[2023-10-28] MEDS ORDERED: ROXICODONE 55 MG/TAB PO (13:42)
[2023-10-28] MEDS ORDERED: LASIX 40MG TABL40 MG PO (13:43)
[2023-10-28] MEDS ORDERED: BLUE-EMU LIDOC1 EACH TP (13:43)
--- NOTE | 2023-10-28 14:21 | NUR ---
patient has remained drowsy and lethargic.
[2023-10-28] MEDS ORDERED: Ondansetron 4 MG/2 ML VIAL IV PRN (16:15)
--- NOTE | 2023-10-28 16:22 | NUR ---
Assumed care of patient from CATARINO Hightower at approximately 1500. Speech Therapy at bedside- administered a couple of ice chips. Pt began to cough and gag- c/o nausea. Per S.T. patient will remain NPO. Dr. Snowden notified that patient c/o nausea. Order received for Kiaan-student nurse to administer. This nurse also inquired about pain management and Dr. Snowden states that patient will not be able to receive any pain medications. Will continue q 2hr repositioning for comfort and to avoid pressure injury. HOB elevated 30 degrees at all times. Fall precautions in place.
--- NOTE | 2023-10-28 16:36 | NUR ---
herbarium worker attended interdisciplinary clinical rounding with Dr. Snowden. Patient moaning in pain, unable to verbally answer questions. SW contacted [facility] as they are established with this patient again. [facility] expressed they were unable to see patient on last week due to no one answering the door but were able to see patient on Thursday. SW asked about any concerns in the home or concerns for care of the patient. Sisi stated that the house was cluttered but did not feel it was unfit to live there. Sisi expressed the family members live in the basement. SW reviewed PT/OT evaluations, recommending SNF. SW attempted to contact Ana Rosa, daughter, whom is listed as primary DPOA-HC on current form from 2022, no answer. SW left voicemail. SW contacted Ned, patient's son/alternate DPOA-HC as listed on the form from 2022, P# [phone]. Ned reports he is the primary DPOA-HC for patient and expressed he could bring in a form stating this. Ned reports when patient is taking her medications she does well at home but he feels that his sister, Ana Rosa Ibanez" does not wait for her to take her medications, he feels she gives them to her and walks away rather than ensuring she takes the medications. Ana Rosa is also supposed to assist with showering when needed according to Ned as she is living with her. Ned expressed he does not know if patient is unclean and this is part of the reason patient continues to return to the hospital along with not properly taking her medications or if it is something else. Ned expressed they were looking into having [facility] come in the home twice a day to ensure she takes her medications and help her shower but patient had promised to take better care of herself, so they had not established this yet. LING confirmed PCP is Dr. Andrew, pharmacy is [facility]. Insurance is Medicare [employer]. DPOA-HC is Ana Rosa/Ned. Ned states he has one with him as the primary that he would bring a copy in for. DME is walker. Ned reports patient is normally independent with ADLS but needs assistance with taking medications and showers which is why Ana Rosa is currently staying with her. LING discussed recommendations of SNF. Ned was okay with this, SW requested he relay this recommendation to his sister, Ana Rosa, as she has been unable to reach her. Ned stated he would. Ned explained he was going to the field tomorrow through Thursday but would be able to be reached via telephone for emergencies. Ned expressed he would want a referral sent to [facility]. Ned reports patient has been to [facility] before and did well there. LING left Medicare.gov list of options for SNF in patient's room and explained the recommenations. Patient was still confused but was able to state she was thirsty. LING notes patient is NPO and unable to have liquids at that time. LING contacted Ned again to confirm they would like referrals sent to [facility]. Ned stated yes and he would relay this to the siblings again. LING secure emailed SNF referral to [facility]. LING made APS report due to concerns of patient's care at home and potential concerns of condition of home. Intake ID [id number] Discharge plan: SNF
--- NOTE | 2023-10-28 17:55 | NUR ---
Pt. resting in bed. Reactive to voice, pain, and touch. Occassionally able to answer direct questions. Unable to follow commands. Restless. Repositioned to maximize comfort. Oral care provided. Emotional support offered.
--- NOTE | 2023-10-28 18:44 | NUR ---
Upon entering room, patient noted to be lying on left side quietly- no squirming, crying out, or other signs of pain. Still not oriented and confused but pleasant. Refused 1700 meds.
--- NOTE | 2023-10-28 18:50 | NUR ---
No change in assessment. O2 2L/NC. No SOA noted. IVF continue to infuse without s/s IV related complications. Pt resting with eyes closed, respirations even and unlabored. Easily arousable. Confused and doesn't respond to questions. Unable to follow simple commands. Neuro checks completed- see intervention for results.
--- NOTE | 2023-10-28 19:24 | NUR ---
BP recheck- 106/57 WNL. Alerted by IVORY HARP, of previous BP 87 systolic.
--- NOTE | 2023-10-28 19:29 | NUR ---
CALL PLACED TO HOSPITALIST. PATIENT PLATELET COUND 95 AND PT TIME ELEVATED, ASKED IF NEEDED TO HOLD LOVENOX INJ. TORB TO CONTINUE WITH LOVENOX GIVEN.
--- NOTE | 2023-10-28 23:35 | NUR ---
UPON SHIFT ASSESSMENT, RUTHY WAS WRITHING IN BED AND APPEARED TO BE IN PAIN. DAYSHIFT REPORT STATED NO PAIN MEDS CAN BE GIVEN D/T LIVER AND RENAL FAILURE. PATIENT EXHIBITS IMPROVED MENTAL STATUS AND WAS ABLE TO FOLLOW COMMANDS AND RESPOND TO FARZANEH EASTON'S PHONE CONVERSATION. VS ARE WNL AND TELE IS NS AT 97 BPM. BED ALARM ON.
[2023-10-29] VITALS (13 sets, daily range): BP systolic 89–118; BP diastolic 51–67; PULSE 89–193; TEMP 97.7–98.6
--- NOTE | 2023-10-29 00:44 | NUR ---
PATIENT C/O SEVERE THIRST, HOWEVER IS ON NPO STATUS. MOISTEND MOUTH SWABS PROVIDED. PATIENT HAS IMPROVED IN MENTAL STATUS AND IS AXO X4.
--- NOTE | 2023-10-29 05:00 | NUR ---
CALL PLACED TO HOSPITALIST REQUESTING LIDOCAINE PATCH FOR RUTHY. SHE C/O 03/05 BACKPAIN. TORB GIVEN FOR 1 4% LIDOCAINE PATCH.
[2023-10-29 07:13] LABS: ALBUMIN 2.1 g/dL (3.4-4.8); BILIRUBIN,TOTAL 4.7 mg/dL (0.2-1.2); CREATININE, serum 0.98 mg/dL (0.57-1.11); POTASSIUM 3.9 mEq/L (3.5-4.5); TOTAL PROTEIN 4.5 g/dl (6.2-8.1)
[2023-10-29 07:41] LABS: BASO % 0.2 % (0.0-2.0); EOS # 0.2 K/mm3 (0.0-0.7); EOS % 1.6 % (0.0-4.0); GRAN # 8.1 K/mm3 (1.4-6.5); GRAN % 81.7 % (42.2-75.2); LYMPH # 0.8 K/mm3 (1.2-3.4); MEAN CELL VOLUME 104 fl (80.0-100.0); MEAN CORPUSCULAR HGB CONC 32 g/dl (33.0-37.0); MEAN PLATELET VOLUME 11.7 fl (7.4-10.4); MONO # 0.8 K/mm3 (0.1-0.6); MONO % 8.1 % (1.7-9.3); RED BLOOD COUNT 2.27 M/mm3 (4.10-5.30)
[2023-10-29 07:46] LABS: HEMATOCRIT 23.5 % (37.0-47.0); MEAN CORPUSCULAR HEMOGLOBIN 33 pg (27-31); PLATELET COUNT 62 K/mm3 (130-400)
[2023-10-29 07:48] LABS: HEMOGLOBIN 7.5 g/dl (12.5-16.0)
--- NOTE | 2023-10-29 08:04 | NUR ---
Dr. Snowden notified of decrease in H/H, provider aware, telephone order given for a repeat H/H to be drawn at noon.
[2023-10-29] MEDS ORDERED: Lidocaine 4% Topical Patch TP SCH (09:00)
--- NOTE | 2023-10-29 10:11 | NUR ---
Patient awake, alert, oriented x2. Confused about date, stating it is September 2013. Knows that she is in [facility] but not quite sure why she is here. States she is very thirsty. Educated pt on reason for NPO status. C/O back pain, lidocaine patch applied. Repositioned in bed. Bed in lowest position with call light within reach, bed alarm on.
[2023-10-29] MEDS ORDERED: Acetaminophen 325 MG TAB PO PRN (12:00)
--- NOTE | 2023-10-29 12:02 | NUR ---
adoption social worker was notified [facility] is unable to accept at this time due to bed availability. SW was contacted by [facility] about the plan for patient after rehab. SW explained they have discussed LTC as well as hospice with the family and patient. Patient wants to continue with medical care at this time. LING explained they are completing a Medicaid application in case patient were to need to stay for LTC after rehab. Kaz at [facility] expressed they would continue to follow patient but should be able to accept for SNF. Discharge plan: SNF
[2023-10-29 13:29] LABS: HEMATOCRIT 25.8 % (37.0-47.0); HEMOGLOBIN 8.1 g/dl (12.5-16.0)
[2023-10-29] MEDS ORDERED: DAPTOmycin 500 MG in NS 10 ML IV SCH (17:00)
--- NOTE | 2023-10-29 23:44 | NUR ---
patient lying in bed, alert and oriented x2-3, occasional confusion with date and situation. pt denies chest pain and reports shortness of breath with exertion, pain rated 10/10 in legs, back, and abd, tylenol given per request, legs elvated on pillows, and repositioned. redness, tenderness and +2 pitting edema in BLE, lidocaines patch on back removed, small scattered bruising on extremities and abd noted. IV in RAC and LH are patent, sites are clean dry and intact. pt has no further needs, questions, or concerns at this time. fall precautions in place, call light within reach. will continue to monitor.
[2023-10-30] VITALS (12 sets, daily range): BP systolic 100–113; BP diastolic 37–64; PULSE 67–102; TEMP 97.3–98.4
[2023-10-30 06:33] LABS: BASO # 0.1 K/mm3 (0.0-0.2); BASO % 0.7 % (0.0-2.0); EOS # 0.5 K/mm3 (0.0-0.7); EOS % 6.7 % (0.0-4.0); GRAN # 4.8 K/mm3 (1.4-6.5); GRAN % 67.2 % (42.2-75.2); LYMPH % 13.3 % (20.0-51.0); MEAN CELL VOLUME 100 fl (80.0-100.0); MEAN CORPUSCULAR HGB CONC 33 g/dl (33.0-37.0); MEAN PLATELET VOLUME 11.3 fl (7.4-10.4); MONO # 0.8 K/mm3 (0.1-0.6); MONO % 11.5 % (1.7-9.3); PLATELET COUNT 70 K/mm3 (130-400); RED BLOOD COUNT 2.27 M/mm3 (4.10-5.30)
[2023-10-30 06:48] LABS: HEMATOCRIT 22.8 % (37.0-47.0); HEMOGLOBIN 7.4 g/dl (12.5-16.0); MEAN CORPUSCULAR HEMOGLOBIN 33 pg (27-31)
[2023-10-30 06:50] LABS: ALBUMIN 2.1 g/dL (3.4-4.8); BILIRUBIN,TOTAL 3.3 mg/dL (0.2-1.2); CALCIUM 7.8 mg/dL (8.4-10.2); CREATININE, serum 1.19 mg/dL (0.57-1.11); POTASSIUM 3.6 mEq/L (3.5-4.5); TOTAL PROTEIN 4.7 g/dl (6.2-8.1)
[2023-10-30] MEDS ORDERED: rifAXIMin 550 MG TAB PO SCH (09:03)
[2023-10-30] MEDS ORDERED: Sucralfate 1 G TAB PO SCH (09:04)
[2023-10-30] MEDS ORDERED: Lactulose Oral Soln 10 GM/15 ML CUP PO SCH (09:04)
[2023-10-30] MEDS ORDERED: Memantine 10 MG TAB PO SCH (09:05)
[2023-10-30] MEDS ORDERED: buPROPion XL (24-HR) 150 MG TAB PO SCH (09:05)
[2023-10-30] MEDS ORDERED: Spironolactone 25 MG TAB PO SCH (09:30)
[2023-10-30] MEDS ORDERED: Folic Acid 1 MG TAB PO SCH (09:30)
--- NOTE | 2023-10-30 09:48 | NUR ---
farmworker general secure emailed clinical updates on patient to [facility]. SW attended interdisciplinary clinical rounding, patient is not medically ready for discharge. Discharge plan: SNF- [facility]
--- NOTE | 2023-10-30 13:59 | NUR ---
car worker helper submitted for authorization for SNF through [facility] portal for patient to go to [facility] when medically ready for discharge.
--- NOTE | 2023-10-30 15:35 | NUR ---
open hearth worker was notified by [facility] if patient is not stable for discharge, SW will need to resubmit when patient is ready for discharge. SW notified [facility] that they will need to resubmit when patient is ready for discharge.
--- NOTE | 2023-10-30 16:30 | NUR ---
THIS RN TAKING OVER PATIENT CARE AT THIS TIME. REPORT RECEIVED FROM CATARINO TOURE.
[2023-10-30] MEDS ORDERED: Cefepime 1 G in Water For Injection,Sterile 10 ML IV SCH (18:00)
[2023-10-30] MEDS ORDERED: Donepezil 5 MG TAB PO SCH (21:00)
[2023-10-31] VITALS (11 sets, daily range): BP systolic 100–122; BP diastolic 57–70; PULSE 80–91; TEMP 97.7–98.2
--- NOTE | 2023-10-31 02:07 | NUR ---
NURSING SHIFT ASSESSMENT COMPLETED. THE PATIENT WAS ALERT AND ORIENTED UPON ASSESSMENT. THE PATIENT WAS REPOSITIONED AT THIS TIME. THE PLAN OF CARE AND EVENING MEDICATIONS REVIEWED. THE PATIENT DENIED OTHER NEEDS AT THIS TIME. CALL LIGHT WITHIN REACH. BED IN LOW POSITION AND BED ALARM ON.
[2023-10-31 07:36] LABS: BASO % 0.7 % (0.0-2.0); EOS # 0.5 K/mm3 (0.0-0.7); EOS % 8.2 % (0.0-4.0); GRAN # 3.8 K/mm3 (1.4-6.5); GRAN % 63.7 % (42.2-75.2); LYMPH % 16.1 % (20.0-51.0); MEAN CELL VOLUME 100 fl (80.0-100.0); MEAN CORPUSCULAR HGB CONC 32 g/dl (33.0-37.0); MEAN PLATELET VOLUME 10.9 fl (7.4-10.4); MONO # 0.7 K/mm3 (0.1-0.6); MONO % 10.8 % (1.7-9.3); PLATELET COUNT 80 K/mm3 (130-400); RED BLOOD COUNT 2.53 M/mm3 (4.10-5.30); REDCELL DISTRIBUTION WIDTH-CV 22.5 % (11.5-14.5)
[2023-10-31 07:46] LABS: HEMATOCRIT 25.2 % (37.0-47.0); HEMOGLOBIN 8.1 g/dl (12.5-16.0); MEAN CORPUSCULAR HEMOGLOBIN 32 pg (27-31)
[2023-10-31 07:48] LABS: ALBUMIN 2.3 g/dL (3.4-4.8); BILIRUBIN,TOTAL 2.8 mg/dL (0.2-1.2); CALCIUM 7.8 mg/dL (8.4-10.2); CREATININE, serum 1.15 mg/dL (0.57-1.11); POTASSIUM 3.6 mEq/L (3.5-4.5); TOTAL PROTEIN 5.2 g/dl (6.2-8.1)
[2023-10-31] MEDS ORDERED: Furosemide 20 MG TAB PO SCH (09:17)
--- NOTE | 2023-10-31 10:42 | NUR ---
Patient alert and oriented x4, complains of baseline pain. New lidocaine patch placed to right lower back. HR regular, lung sounds clear. Shortness of breath noted with exertion, but none noted at rest. Pitting edema continues to bilateral lower extremities, legs both red and scaling/flaking. PO Lasix administered per orders. Patient tolerating food and fluids well, ate 100% breakfast. Up to bedside commode with large, loose stool. No incontinence noted. Call light within reach, all needs met at this time.
--- NOTE | 2023-10-31 15:11 | NUR ---
Sanchez catheter discontinued around 1130 with no complications. Patient tolerated well. 9-10ml of water removed from sanchez balloon prior to catheter removal. Catheter removed with tip intact. Patient has been up to commode since removal. Another loose stools noted. Barrier cream applied to bottom and groin. Groin has some redness, interdry cloths applied. Patient in bed with call light in reach, all needs met at this time.
[2023-11-01] VITALS (9 sets, daily range): BP systolic 100–131; BP diastolic 45–73; PULSE 79–94; TEMP 97.5–98.2
--- NOTE | 2023-11-01 05:58 | NUR ---
NURSING SHIFT ASSESSMENT COMPLETED. THE PATIENT WAS ALERT AND ORIENTED AND DOING A WORD SEARCH PUZZLE AND WATCHING TV. THE PATIENT REPORTED PAIN 3/10 LOWER BACK PAIN. FRESH WATER AND ICE WAS PROVIDED. THE PLAN OF CARE AND EVENING MEDICATIONS REVIEWED. CALL LIGHT AND PERSONAL BELONGINGS WITHIN REACH. BED IN LOW POSITION AND BED ALARM ON.
--- NOTE | 2023-11-01 09:02 | NUR ---
PATIENT SITTING UP IN BED UPON ENTERING ROOM. MORNING MEDICATIONS ADMINISTERED. SHIFT ASSESSMENT COMPLETED. PATIENT COMPLAINS OF BACK AND ABDOMINAL PAIN, LIDOCAINE PATCH REPLACED AND TYLENOL GIVEN. JAYCE PEREZ NOTIFIED OF ABDOMINAL PAIN. PATIENT DENIES ANY OTHER NEEDS AT THIS TIME. REPOSITIONED IN BED, BED ALARMS IN PLACE. ON 1L O2 VIA NC. CALL LIGHT WITHIN REACH. WILL CONTINUE TO MONITOR.
[2023-11-01] MEDS ORDERED: Furosemide 40 MG TAB PO SCH (09:15)
[2023-11-01] MEDS ORDERED: Iohexol 300 - 100 ML VIAL IV ONE (09:58)
[2023-11-02] VITALS (13 sets, daily range): BP systolic 111–152; BP diastolic 55–69; PULSE 78–96; TEMP 97.5–99
--- NOTE | 2023-11-02 09:10 | NUR ---
PATIENT RESTING IN BED UPON ENTERING ROOM. MORNING MEDICATIONS ADMINISTERED. SHIFT ASSESSMENT COMPLETED. PATIENT IS CURRENTLY ON 1L O2 VIA NC. SHE AMBULATES AROUND ROOM WELL WITH WALKER AND MINIMAL ASSISTANCE. COMPLAINS OF GENERALIZED PAIN. ALARMS IN PLACE, CALL LIGHT WITHIN REACH. WILL CONTINUE TO MONITOR.
[2023-11-02 11:26] LABS: BASO % 0.7 % (0.0-2.0); EOS # 0.4 K/mm3 (0.0-0.7); EOS % 7.9 % (0.0-4.0); GRAN # 3.6 K/mm3 (1.4-6.5); GRAN % 65.2 % (42.2-75.2); LYMPH # 0.9 K/mm3 (1.2-3.4); LYMPH % 15.7 % (20.0-51.0); MEAN CELL VOLUME 100 fl (80.0-100.0); MEAN CORPUSCULAR HGB CONC 34 g/dl (33.0-37.0); MEAN PLATELET VOLUME 10.5 fl (7.4-10.4); MONO # 0.6 K/mm3 (0.1-0.6); MONO % 10.1 % (1.7-9.3); PLATELET COUNT 72 K/mm3 (130-400); RED BLOOD COUNT 2.29 M/mm3 (4.10-5.30); REDCELL DISTRIBUTION WIDTH-CV 22.5 % (11.5-14.5)
[2023-11-02 11:27] LABS: HEMOGLOBIN 7.7 g/dl (12.5-16.0); MEAN CORPUSCULAR HEMOGLOBIN 34 pg (27-31)
[2023-11-02 11:42] LABS: CALCIUM 8.1 mg/dL (8.4-10.2); CREATININE, serum 1.1 mg/dL (0.57-1.11); MAGNESIUM 2.2 mg/dL (1.6-2.6); POTASSIUM 4.1 mEq/L (3.5-4.5)
--- NOTE | 2023-11-02 12:52 | NUR ---
turn out worker attended clincial rounding and was informed at first, patient can discharge to [facility] today. SW was later informed patient needs some testing/imaging done per ID reccomendations prior to discharge. LING completed auth through [employer] portal. LING emailed Kaz at [facility] updates and spoke briefly about a potential discharge for tomorrow. LING notes patient is currently on IV Antibiotics for 8 more days and is on 1L of oxygen. Discharge Plan: [facility]
--- NOTE | 2023-11-02 13:33 | NUR ---
Social work student met with patient to review important message from medicare form. Patient understood and signed. Social work student made a copy to put in the chart and gave patient the original.
--- NOTE | 2023-11-02 15:24 | NUR ---
hall worker spoke with JAYCE Mckeon who reports Dr. Acevedo would like a [facility]erral sent. SW emailed this to Austin. SW spoke with Austin who reports he could submit for auth, but felt as though she would barely, if at all meet criteria. Austin suggests waiting until tomorrow to re-asses if she is improving she would be more best fit for SNF care. SW verbalized understanding and informed PA of low likelihood of [facility] accepting. Discharge Plan: tbd, [facility] likely tomorrow
--- NOTE | 2023-11-02 17:58 | NUR ---
THIS RN WAS CONTACTED BY RUTHY ARANDA'S SON AT THIS TIME. HE WAS ASKING FOR UPDATES. HE WAS UPSET BECAUSE THE DOCTOR HAD SAID "THE PATIENT IS GOING TO [place] AND SHE NEEDS TO GET HER AFFAIRS IN ORDER." THIS RN INQUIRED ABOUT WHERE HE HAD HEARD THIS INFORMATION. THE PATIENT REPLIED THAT THIS ISN'T THE FIRST TIME THEY'VE BEEN TOLD THIS BY A DOCTOR HERE, BUT HE'S NOT SURE IF IT'S THE SAME DOCTOR. THIS RN STATED THAT I WAS NOT IN THE ROOM WHEN DR. BARAJAS ROUNDED AND CANNOT VERIFY WHAT WAS SAID. I STATED THAT IT COULD BE A MISCOMMUNICATION OR A MISUNDERSTANDING. THE PATIENT STATES HE HAS TRIED TO GET INTO CONTACT WITH THE DOCTOR MULTIPLE TIMES SINCE RUTHY'S ADMISSION BUT HAS NOT SPOKEN TO ANYONE OTHER THAN NURSING STAFF. I INFORMED PATIENT THAT I WOULD SPEAK WITH DR. BARAJAS IMMEDIATELY AND SEE IF HE WOULD CALL THEM TO UPDATED ABOUT PATIENT CONDITION. MANOJ WAS OK WITH THIS. THIS RN CONTACTED DR. BARAJAS AFTER PREVIOUS PHONE CALL ENDED AND REQUESTED HE CALL AND UPDATE MANOJ. DR. BARAJAS INFORMED THIS NURSE THAT HE WOULD CALL.
--- NOTE | 2023-11-02 20:30 | NUR ---
UPON SHIFT ASSESSMENT, RUTHY WAS AWAKE IN BED AND AXO X4. FINE CRACKLES THAT CLEARED WITH COUGH WERE AUSCULTATED IN UPPER LOBES. RUTHY STILL HAS SIGNIFICANT ANASCARA AND IS JAUNDICE. SHE REFUSED LACTOLUSE AND PATIENT EDUCATION WAS PROVIDED ON RISKS FOR ELEVATED AMMONIA/ENCEPHALOPATHY. [place] WAS OBSERVED WHEN AMBULATING TO BATHROOM. VS ARE CURRENTLY WNL. SHE C/O 6/10 BACK PAIN AND PRN TYLENOL WAS ADMINISTERED. STATES NO NEW NEEDS AT THIS TIME. CHAIR ALARM ON.
--- NOTE | 2023-11-02 23:25 | NUR ---
CALL PLACED TO RT. PATIENT HX OF STEFFANIE WITH CPAP HOME USE. REQUESTED CPAP PLACEMENT. RT STATED NO ODERS BUT WILL COME AND PLACE CPAP AND REQUESTED ORDERS BE PLACED.
--- NOTE | 2023-11-02 23:30 | NUR ---
RT REPORTED RUTHY DID NOT TOLERATE CPAP. WILL TRY AGAIN PER PATIENT REQUEST.
--- NOTE | 2023-11-02 23:30 | NUR ---
RT NOTIFIED BY RN THAT PT WEARS A CPAP AT HOME AND IS WILLING TO WEARING ONE TONIGHT. RT BRINGS HOSPITAL CPAP TO PT'S ROOM AND NOTIFED NURSE THAT PT HAS NO ORDERS FOR A CPAP. RT PLACED NASAL MASK ON PT AND AFTER A MINUTE OF WEARING IT PT STARTS GASPING AND GRABBING AT CHEST. RT TAKES MASK OFF AND ASKS PT IF HER CHEST IS HURTING. PT STATES "NO, BUT WITH MY SWELLING IT HURTS". PT GESTURES ACROSS HER CHEST WHERE THE PAIN IS. PT WILLING TO TRY CPAP AGAIN LATER. RN NOTIFIED.
[2023-11-03 01:00] VITALS: BP_SYST 152
[2023-11-03 04:10] VITALS: BP 147/55; PULSE 87; TEMP 98
[2023-11-03 04:37] VITALS: BP_SYST 147
[2023-11-03 07:08] VITALS: BP 119/66; PULSE 87; TEMP 97.9
[2023-11-03 07:27] LABS: BASO % 0.7 % (0.0-2.0); EOS # 0.5 K/mm3 (0.0-0.7); EOS % 7.7 % (0.0-4.0); GRAN # 3.8 K/mm3 (1.4-6.5); GRAN % 61.7 % (42.2-75.2); LYMPH # 1.2 K/mm3 (1.2-3.4); LYMPH % 18.9 % (20.0-51.0); MEAN CELL VOLUME 100 fl (80.0-100.0); MEAN CORPUSCULAR HGB CONC 33 g/dl (33.0-37.0); MEAN PLATELET VOLUME 9.7 fl (7.4-10.4); MONO # 0.7 K/mm3 (0.1-0.6); MONO % 10.7 % (1.7-9.3); PLATELET COUNT 69 K/mm3 (130-400); RED BLOOD COUNT 2.07 M/mm3 (4.10-5.30); REDCELL DISTRIBUTION WIDTH-CV 22.3 % (11.5-14.5)
[2023-11-03 07:29] LABS: HEMATOCRIT 20.7 % (37.0-47.0); MEAN CORPUSCULAR HEMOGLOBIN 34 pg (27-31)
[2023-11-03 07:39] LABS: CALCIUM 7.9 mg/dL (8.4-10.2); CREATININE, serum 0.92 mg/dL (0.57-1.11); POTASSIUM 4.2 mEq/L (3.5-4.5)
[2023-11-03] MEDS ORDERED: ALDACTONE 25MG25 M1 PO (08:59)
[2023-11-03 09:00] VITALS: BP_SYST 119
[2023-11-03] MEDS ORDERED: CEFEPIME1 GM/50 ML IV (09:01)
[2023-11-03] MEDS ORDERED: ROXICODONE 55 MG/TAB PO (09:02)
--- NOTE | 2023-11-03 10:37 | NUR ---
child care worker attended clinical rounding and was informed pt can discharge today to [facility]. IM was completed yesterday. LING emailed discharge orders to Kaz at [facility]. He arranged for 11am transport. LING informed CATARINO Ware of transport time. Discharge Plan: [facility] at 11am
--- NOTE | 2023-11-03 12:19 | NUR ---
group home worker was notified by LING Howell that a son had called requesting an update and to express concerns. LING called son, Ned/DPOA [phone] to discuss recent call. Ned reports he was not the one who called, but states it was likely his brother and is aware of his concerns. Ned went on to state his main concern is the "chain reaction with the dieruetics medications." He went on to state he is continually bringing his mother back in due to the direutic doses being changed or discontinued and causing fluid build up to where she cannot walk. He expressed the need to get the "meds straightened out" and "doses fixed." LING informed him that pt discharged at 11am to [facility]. He began to get upset and state he did not know. LING gently informed him that his mother was aware of this as of yesterday and was cleared by this morning. He verbalized understanding. LING advised pt's PCP will be available and there is a DrSonia at [facility] to discuss medication concerns. LING offered to allow son to make a formal complaint and he declined at this time. He reports he will call PCP and have him "change the meds back." LING urged him to discuss with Dr. Patiño at [facility] as well to correlate the need. No further needs noted.
--- NOTE | 2023-11-03 12:57 | NUR ---
hospital social worker recieved a call from pt's son, Daniel whom expressed the same concerns as the above conversation with his brother, Ned. He expressed frustrations that they were told by the "to get her affairs in order" and other unpleasant things. He expressed concerns regarding her medication changes as aforementioned. LING relayed the same information she discussed with son, Ned. He states the advocate in [facility] was not aware of his mother's discharge when he asked around 30min ago. SW again provided him to discuss with PCP and Dr. Singh to discuss medications. He stated his biggest concern is "her having to end back up in the hospital." Daniel reports he informed the PT Aide to call the advocate or SW department. LING informed him this message was never relayed and apologized it was not done. SW stated to ask for the social work department if he has any other needs and call the manager front office. He expressed being unaware of his mother's discharge. LING provided she was alert and oriented and made aware of the plan yesterday and LING had no note to call each family member to provide an update. Daniel verbalized understanding. Daniel states that Director Evie Adames' voicemail is "broken." LING stated she will pass this along.
== END 2023-11-03 11:34 | DRG 871 ==
LOC: COL.ER 01:34 → MEDICAL 05:09
PROVIDERS: Internal Medicine; Physician Assistant; ADMIT Internal Medicine
DX: A41.9 Sepsis, unspecified organism (principal); G93.41 Metabolic encephalopathy; N39.0 Urinary tract infection, site not specified; L03.116 Cellulitis of left lower limb; L03.115 Cellulitis of right lower limb; J96.11 Chronic respiratory failure with hypoxia; K76.6 Portal hypertension; A41.01 Sepsis due to Methicillin susceptible Staphylococcus aureus; M54.9 Dorsalgia, unspecified; R10.9 Unspecified abdominal pain; R13.10 Dysphagia, unspecified; D64.9 Anemia, unspecified; R79.89 Other specified abnormal findings of blood chemistry; K74.60 Unspecified cirrhosis of liver; K75.81 Nonalcoholic steatohepatitis (NASH); J44.9 Chronic obstructive pulmonary disease, unspecified; N18.30 Chronic kidney disease, stage 3 unspecified; R60.0 Localized edema; D69.6 Thrombocytopenia, unspecified; G47.33 Obstructive sleep apnea (adult) (pediatric); E66.01 Morbid (severe) obesity due to excess calories; Z68.34 Body mass index [BMI] 34.0-34.9, adult; F03.90 Unspecified dementia, unspecified severity, without behavioral disturbance, psychotic disturbance, mood disturbance, and anxiety; Z87.891 Personal history of nicotine dependence; Z99.81 Dependence on supplemental oxygen
CPT/HCPCS: C9113; J0692; J0878; J1650; J2020; J2185; J2405; J2543; J7030; Q3014; Q9967